=== PATIENT | female | born 1985 | race Caucasian/White ===

== ENCOUNTER 2021-06-01 17:01 | Emergency (ER) | payer BC, SELFPAY ==
[2021-06-01 17:29] VITALS: BP 126/82; PULSE 83; RESP 16; TEMP 36.2; O2SAT 99
--- NOTE | 2021-06-01 19:12 | ED.GENADULT ---
HPI - General Adult General Chief complaint: Skin/Abscess/Foreign Body Stated complaint: abcess under breast Source: patient Mode of arrival: ambulatory Limitations: no limitations History of Present Illness HPI narrative: Patient is a 36-year-old female who presents to the urgent care via POV for evaluation of a skin problem located on right breast that has been present for approximately 3 weeks. Additionally, she reports that area is tender, warm, erythematous, and draining. She states the drainage is scant and light yellow in color. Drainage is malodorous. No relief with Tylenol, ibuprofen, or warm compresses. Nothing improves symptoms. Touching the area and wearing a bra increases tenderness. History of cellulitis and abscesses. Today symptoms are similar to episodes of both Related Data Home Medications Medication Instructions Recorded Confirmed atorvastatin 06/01/21 dapagliflozin-metformin [Xigduo XR] PO 06/01/21 diphenoxylate-atropine tablet 06/01/21 escitalopram oxalate mg 06/01/21 06/01/21 exenatide microspheres [Bydureon mg SUBCUT 06/01/21 BCise] ferrous sulfate [FeroSul] mg 06/01/21 flash glucose sensor [FreeStyle 06/01/21 06/01/21 Terrell 14 Day Sensor] norgestrel-ethinyl estradiol tablet 06/01/21 [Low-Ogestrel (28)] ondansetron 06/01/21 pregabalin 06/01/21 propranolol 06/01/21 rifaximin [Xifaxan] mg 06/01/21 sitagliptin [Januvia] mg 06/01/21 tizanidine mg 06/01/21 Allergies Allergy/AdvReac Type Severity Reaction Status Date / Time Penicillins Allergy Rash Verified 06/01/21 19:12 Review of Systems Review of Systems: Denies injury. Pertinent negatives fever, chills, sweats, malaise, poor p.o. intake, change in appetite, headache, LOC, dizziness, streaking, numbness, tingling, loss of sensation, foreign body sensation, deformity, sob, chest pain, and heart palpitations/murmurs. [facility] Past Medical History Medical History (Updated 06/01/21 @ 19:17 by Judy Steven, [employer], BC) Cellulitis Diabetes mellitus type 2 in nonobese GERD (gastroesophageal reflux disease) Hyperlipidemia Iron deficiency anemia Irritable bowel syndrome Migraines Muscle spasm Neuropathy Skin abscess Social History Social History Smoking status: Former smoker Smoking end date: 09/03/08 Alcohol intake: never Exam Narrative: GENERAL: Well-appearing, well-nourished, and in no acute distress. HEAD: Normocephalic, atraumatic. No facial swelling appreciated. EYES: PERRLA and EOMI. No evidence of erythema, swelling, or drainage. ENT: Nares clear, no rhinorrhea or epistaxis.Mucous membranes moist and pink. Uvula is midline without erythema and swelling. No evidence of obstruction, petechial rash, cobblestoning, lesions, ulcers, erythema, swelling, exudates, peritonsillar abscess, tenting, or drooling. Breath odor and voice normal. NECK: Supple. No Lymphadenopathy or nuchal rigidity appreciated. CHEST: Bilateral lung mena are clear to auscultation. No respiratory distress. No evidence of cough or pleuritic cp upon examination. HEART: Regular rate and rhythm. No murmur, gallop, or rub heard. EXTREMITIES: Normal range of motion. No edema. SKIN: Warm, dry. Moderate cellulitis noted to right breast. No evidence of abscess, streaking, induration, abrasions/lacerations, petechiae, hematoma, contusion, drainage, or bleeding. NEURO: No focal deficits. Alert and oriented x3. SPECIAL OBSERVATIONS: Smiling. Laughing. No evidence of discomfort. C/O of of proportion to exam. Eating XXX. Running around. Tolerates food/fluids. Course Vital Signs Vital signs: Vital Signs Temperature 97.2 F L 06/01/21 17:29 Pulse Rate 83 06/01/21 17:29 Respiratory Rate 16 06/01/21 17:29 Blood Pressure 126/82 06/01/21 17:29 Pulse Oximetry 99 06/01/21 17:29 Temperature 97.2 F L 06/01/21 17:29 Pulse Rate 83 06/01/21 17:29 Respiratory Rate 16 06/01/21 17:29 Blood Pressure 126/82
== END 2021-06-01 19:15 | disposition home or self-care (01) ==
PROVIDERS: Emergency Provider Nurse Practitioner Family
DX: N61.0 Mastitis without abscess (principal); Z87.891 Personal history of nicotine dependence; K21.9 Gastro-esophageal reflux disease without esophagitis; E78.5 Hyperlipidemia, unspecified; E11.40 Type 2 diabetes mellitus with diabetic neuropathy, unspecified; D50.9 Iron deficiency anemia, unspecified
CPT/HCPCS: 99203; G0463

== ENCOUNTER → 2022-01-17 01:32 | Outpatient (CLI) | payer BC, SELFPAY ==
[2022-01-17 10:51] LABS: SARS-CoV-2 RNA PCR Positive
== END ==
PROVIDERS: PCP Family Medicine
DX: U07.1 COVID-19 (principal)
CPT/HCPCS: C9803; U0003; U0005

== ENCOUNTER 2022-02-12 09:49 | Emergency (ER) | payer BC, SELFPAY ==
[2022-02-12 10:00] VITALS: BP 183/110; PULSE 86; RESP 18; TEMP 37.1; O2SAT 99
--- NOTE | 2022-02-12 10:21 | ED.GENADULT ---
HPI - General Adult General Chief complaint: Skin/Abscess/Foreign Body Stated complaint: Rash,Cough Time Seen by Provider: 02/12/22 10:21 History of Present Illness HPI narrative: 36-year-old female patient presents to the [facility] with complaints of a cough and wheezing along with a rash. Patient states she was diagnosed with COVID about a month ago and states she was never given anything for treatment however she continues to have a cough with a little bit of shortness of breath and wheezing noted. Patient also coming in today because she recently returned from [place] and has broken out in a rash to bilateral upper extremities and bilateral lower extremities. Patient states the rash is very itchy. Denies any new lotions soaps or detergents. Patient states she did use some suntan lotion while she was in [place] but used it all over and only notices the rash on the extremities. Patient denies coming into contact with any citrus juice that she is aware of. Patient states she did get into the ocean but that the rash did not actually break out until about 2 or 3 days after going into the ocean. Patient denies any fevers, body aches or chills. Denies any nausea, vomiting or diarrhea. Related Data Home Medications Medication Instructions Recorded Confirmed atorvastatin 20 mg tablet 20 mg PO DAILY 06/01/21 02/12/22 dapagliflozin 5 mg-metformin ER 5 - 1,000 tablet PO DAILY 06/01/21 02/12/22 1,000 mg tablet,extended release 24hr (Xigduo XR) escitalopram oxalate 10 mg tablet 10 mg PO DAILY 06/01/21 02/12/22 ferrous sulfate 325 mg (65 mg 325 mg PO DAILY 06/01/21 02/12/22 iron) tablet (FeroSul) pregabalin 75 mg capsule 75 mg PO DAILY 06/01/21 02/12/22 propranolol 80 mg tablet 80 mg PO DAILY 06/01/21 02/12/22 sitagliptin 100 mg tablet (Januvia) 100 mg PO DAILY 06/01/21 02/12/22 omeprazole 20 mg capsule,delayed 20 mg PO DAILY 02/12/22 02/12/22 release Allergies Allergy/AdvReac Type Severity Reaction Status Date / Time Penicillins Allergy Severe SOB, Verified 02/12/22 09:52 HIVES, SWELLING Review of Systems Review of Systems: CONSTITUTIONAL: Denies fever, chills, or sweats. EYES: Denies visual changes, redness, or discharge. ENT: Denies rhinorrhea, congestion, sore throat, or otalgia. CARDIOVASCULAR: Denies chest pain, palpitations, or edema. RESPIRATORY: Denies cough or dyspnea. GASTROINTESTINAL: Denies abdominal pain, nausea, vomiting, or diarrhea. GENITOURINARY: Denies dysuria or hematuria. SKIN: Denies rash or itching. MUSCULOSKELETAL: Denies back pain, joint pain, or myalgia. NEUROLOGIC: Denies headache, numbness, or weakness. PSYCHIATRIC: Denies anxiety or depression. [facility] Past Medical History Medical History Cellulitis Diabetes mellitus type 2 in nonobese GERD (gastroesophageal reflux disease) Hyperlipidemia Iron deficiency anemia Irritable bowel syndrome Migraines Muscle spasm Neuropathy Skin abscess Social History Social History Smoking status: Former smoker Smoking end date: 09/03/08 Alcohol intake: never Comments At the time of my signature I agree with nursing past medical history, surgical, social, and family history. There is no relevant family history pertinent to the presenting complaint. Exam Narrative: GENERAL: Well-appearing, well-nourished, and in no acute distress. HEAD: Normocephalic, atraumatic. EYES: PERRLA and EOMI. ENT: Nares clear, no rhinorrhea or epistaxis. Mucous membranes moist. NECK: Supple. No lymphadenopathy CHEST: Patient has inspiratory and expiratory wheezing noted to bilateral upper lower lobes on auscultation No respiratory distress. Patient able talk in clear complete sentences. HEART: Regular rate and rhythm. No murmur heard. Normal peripheral pulses. ABDOMEN: Soft, nontender, nondistended, normal active bowel sounds. EXTREMITIES: Normal
[2022-02-12 10:25] VITALS: PULSE 86; RESP 16; O2SAT 99
[2022-02-12] MEDS: IPRATROPIUM BR 0.02% INH SOLN 0.5 MG/2.5 ML VIAL INHALATION (10:32)
[2022-02-12] MEDS: ALBUTEROL SULFATE NEB 2.5 MG/3 ML INH INHALATION (10:33)
[2022-02-12 10:45] VITALS: PULSE 97; RESP 18; O2SAT 99
== END 2022-02-12 11:22 | disposition home or self-care (01) ==
PROVIDERS: Emergency Provider Nurse Practitioner Family
DX: J20.8 Acute bronchitis due to other specified organisms (principal); U09.9 Post COVID-19 condition, unspecified; R21 Rash and other nonspecific skin eruption; K21.9 Gastro-esophageal reflux disease without esophagitis; E78.5 Hyperlipidemia, unspecified; E11.40 Type 2 diabetes mellitus with diabetic neuropathy, unspecified; D50.9 Iron deficiency anemia, unspecified
CPT/HCPCS: 94640; 99213; G0463

== ENCOUNTER 2022-06-03 11:03 | Emergency (ER) | payer BC, SELFPAY ==
--- NOTE | ~2022-06-03 | XR_ITS ---
EXAMINATION: XR foot RT min 3V DATE: 06/03/2022 11:34 INDICATION: Right foot injury and swelling. TECHNIQUE: 4 views of right foot were obtained. COMPARISON: None. FINDINGS: Bone alignment is normal. No fracture. Joint spaces are normal. There are enthesophytes at the posterior and plantar aspects of calcaneal tuberosity. IMPRESSION: 1. No fracture. Reviewed, dictated and finalized at location A. IMPRESSION: 1. No fracture.
[2022-06-03 11:25] VITALS: BP 140/96; PULSE 89; RESP 16; TEMP 36.3; O2SAT 100
[2022-06-03 11:26] VITALS: BP 140/96; PULSE 89; RESP 16; TEMP 36.3; O2SAT 100
--- NOTE | 2022-06-03 11:59 | ED.GENADULT ---
HPI - General Adult General Chief complaint: Extremity Injury, Lower Stated complaint: rt foot swollen Source: patient Mode of arrival: ambulatory Limitations: no limitations History of Present Illness HPI narrative: Patient presents for evaluation of right foot pain from an injury that occurred 2 days ago. She indicates she was on vacation sightseeing at the time of the injury. She was walking down a dark stairwell and missed a step. She caught her self using the handrail and experienced pain in her right foot. At rest she has a dull throbbing sensation but with weightbearing she has considerable increase in pain. She states with movement and weightbearing her pain is 6 out of 10 in severity. She is some chronic numbness and tingling related to diabetic neuropathy. Current symptoms are not worse than her baseline. She has been taking ibuprofen and Tylenol with some improvement in her symptoms or after. Related Data Home Medications Medication Instructions Recorded Confirmed atorvastatin 20 mg tablet 20 mg PO DAILY 06/01/21 06/03/22 dapagliflozin 5 mg-metformin ER 5 - 1,000 tablet PO DAILY 06/01/21 06/03/22 1,000 mg tablet,extended release 24hr (Xigduo XR) escitalopram oxalate 10 mg tablet 10 mg PO DAILY 06/01/21 06/03/22 ferrous sulfate 325 mg (65 mg 325 mg PO DAILY 06/01/21 06/03/22 iron) tablet (FeroSul) pregabalin 75 mg capsule 75 mg PO DAILY 06/01/21 06/03/22 propranolol 80 mg tablet 80 mg PO DAILY 06/01/21 06/03/22 sitagliptin 100 mg tablet (Januvia) 100 mg PO DAILY 06/01/21 06/03/22 omeprazole 20 mg capsule,delayed 20 mg PO DAILY 02/12/22 06/03/22 release Allergies Allergy/AdvReac Type Severity Reaction Status Date / Time Penicillins Allergy Severe SOB, Verified 06/03/22 11:21 HIVES, SWELLING Review of Systems Review of Systems: CONSTITUTIONAL: Denies fever, chills, or sweats. EYES: Denies visual changes, redness, or discharge. ENT: Denies rhinorrhea, congestion, sore throat, or otalgia. CARDIOVASCULAR: Denies chest pain, palpitations, or edema. RESPIRATORY: Denies cough or dyspnea. GASTROINTESTINAL: Denies abdominal pain, nausea, vomiting, or diarrhea. GENITOURINARY: Denies dysuria or hematuria. SKIN: Denies rash or itching. MUSCULOSKELETAL: Reports right foot pain. Denies back pain NEUROLOGIC: Denies headache, numbness, dizziness, or weakness. PSYCHIATRIC: Denies anxiety or depression. 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 HEAD: Normocephalic, atraumatic. EYES: PERRLA and EOMI. ENT: Nares clear, no rhinorrhea or epistaxis. Mucous membranes moist. Oropharynx without tonsillar hypertrophy exudate or other lesions. Bilateral TMs pearly richards nonbulging NECK: Supple. No adenopathy or masses. No carotid bruits or JVD CHEST: Clear to auscultation. No respiratory distress. No wheezes rales or rhonchi HEART: Regular rate and rhythm. No murmur
== END 2022-06-03 12:03 | disposition home or self-care (01) ==
PROVIDERS: Emergency Provider Nurse Practitioner; PCP Family Medicine
DX: S96.911A Strain of unspecified muscle and tendon at ankle and foot level, right foot, initial encounter (principal); W10.9XXA Fall (on) (from) unspecified stairs and steps, initial encounter; E11.9 Type 2 diabetes mellitus without complications; K21.9 Gastro-esophageal reflux disease without esophagitis; E78.5 Hyperlipidemia, unspecified; D50.9 Iron deficiency anemia, unspecified; Z87.891 Personal history of nicotine dependence
CPT/HCPCS: 73630; 99213; G0463

== ENCOUNTER 2022-06-09 13:46 | Emergency (ER) | payer BC, SELFPAY ==
--- NOTE | ~2022-06-09 | XR_ITS ---
EXAMINATION: XR chest 2V 06/09/2022 14:22 INDICATION: Productive cough PROCEDURE: 2 view chest COMPARISON: 05/25/2021 FINDINGS: The lungs are clear. The cardiomediastinal silhouette is within normal limits. There are no pleural effusions. There is no pneumothorax suspected. There is dextroscoliosis. IMPRESSION: 1: NO ACUTE CARDIOPULMONARY DISEASE. Reviewed, dictated and finalized at location A.
[2022-06-09 13:56] VITALS: BP 156/104; PULSE 82; RESP 16; TEMP 37.1; O2SAT 98
--- NOTE | 2022-06-09 14:00 | ED.URI ---
HPI - URI/Sore Throat General Chief Complaint: Upper Respiratory Infection Stated Complaint: Fever, Cough Time Seen by Provider: 06/09/22 14:00 Source: patient, RN notes reviewed and old records reviewed Mode of arrival: ambulatory Limitations: no limitations History of Present Illness HPI Narrative: 37-year-old female presents to the [facility] with complaints of fever and cough. Patient reports that on Sunday she started with a sore throat, sinus issues and has moved into her chest. Patient reports of productive cough that has gradually gotten worse over the last few days. Reports low-grade fevers. Related Data Home Medications Medication Instructions Recorded Confirmed atorvastatin 20 mg tablet 20 mg PO DAILY 06/01/21 06/03/22 dapagliflozin 5 mg-metformin ER 5 - 1,000 tablet PO DAILY 06/01/21 06/03/22 1,000 mg tablet,extended release 24hr (Xigduo XR) escitalopram oxalate 10 mg tablet 10 mg PO DAILY 06/01/21 06/03/22 ferrous sulfate 325 mg (65 mg 325 mg PO DAILY 06/01/21 06/03/22 iron) tablet (FeroSul) pregabalin 75 mg capsule 75 mg PO DAILY 06/01/21 06/03/22 propranolol 80 mg tablet 80 mg PO DAILY 06/01/21 06/03/22 sitagliptin 100 mg tablet (Januvia) 100 mg PO DAILY 06/01/21 06/03/22 omeprazole 20 mg capsule,delayed 20 mg PO DAILY 02/12/22 06/03/22 release Allergies Allergy/AdvReac Type Severity Reaction Status Date / Time Penicillins Allergy Severe SOB, Verified 06/03/22 11:21 HIVES, SWELLING Review of Systems Review of Systems: All systems reviewed & are unremarkable except as noted in HPI and below Constitutional: Constitutional: Reports no additional constitutional complaints, Denies chills and Denies fever(s) Eyes: Eyes: Reports no additional eye complaints ENT: Reports as per HPI and Reports sore throat Cardiovascular: Cardiovascular: Reports no additional cardiovascular complaints Respiratory: Respiratory: Reports as per HPI, Reports chest congestion, Reports cough and Reports wheezing Gastrointestinal: Gastrointestinal: Reports no additional gastrointestinal complaints Musculoskeletal: Musculoskeletal: Reports no additional musculoskeletal complaints Integumentary/Breasts: Skin/Breast: Reports system reviewed and no additional complaints, except as docu Neurologic: Reports system reviewed and no additional complaints, except as documented Psychiatric: Psychiatric: Reports no additional psychiatric complaints Allergic/Immunologic: Allergic/Immunologic: Reports no additional allergic/immunologic complaints PMFSH Past Medical History Medical History (Updated 06/09/22 @ 14:37 by Camryn Salazar APRN) Cellulitis Diabetes mellitus type 2 in nonobese GERD (gastroesophageal reflux disease) Hyperlipidemia Iron deficiency anemia Irritable bowel syndrome Migraines Muscle spasm Neuropathy Right foot strain Skin abscess Surgical History Surgical History No pertinent past surgical history Family History Family History Mother Family history non-contributory Social History Social History Smoking status: Former smoker Smoking end date: 09/03/08 Alcohol intake: current Alcohol use details: Social 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 There is no relevant family history pertinent to the patient complaint. Exam Const: General: healthy appearing, no acute distress, alert and well nourished Nutritional Appearance: well nourished and obese Orientation/consciousness: patient oriented x3 Limitations
== END 2022-06-09 14:57 | disposition home or self-care (01) ==
PROVIDERS: Emergency Provider Nurse Practitioner; PCP Family Medicine
DX: J40 Bronchitis, not specified as acute or chronic (principal); Z87.891 Personal history of nicotine dependence; E11.9 Type 2 diabetes mellitus without complications; K21.9 Gastro-esophageal reflux disease without esophagitis; E78.5 Hyperlipidemia, unspecified; D50.9 Iron deficiency anemia, unspecified
CPT/HCPCS: 71046; 87804; 99213; G0463

== ENCOUNTER 2023-01-23 08:39 | Emergency (ER) | payer BC, SELFPAY ==
--- NOTE | ~2023-01-23 | XR_ITS ---
EXAMINATION: XR chest 2V DATE: 01/23/2023 09:22 INDICATION: Productive cough. TECHNIQUE: Frontal and lateral views of the chest were obtained. COMPARISON: Chest 2 views 06/09/2022 FINDINGS: There is no pneumonia, pleural effusion, or pneumothorax. The heart size is normal. IMPRESSION: 1. No acute cardiopulmonary disease. Reviewed, dictated and finalized at location A.
[2023-01-23 08:49] VITALS: BP 117/73; PULSE 70; RESP 16; TEMP 36.4; O2SAT 99
[2023-01-23 08:50] VITALS: BP 117/73; PULSE 70; RESP 16; TEMP 36.4; O2SAT 99
--- NOTE | 2023-01-23 09:18 | ED.GENADULT ---
HPI - General Adult General Chief complaint: Upper Respiratory Infection Stated complaint: Cough/SOB Source: patient Mode of arrival: ambulatory Limitations: no limitations History of Present Illness HPI narrative: Patient presents for evaluation of sick symptoms for the last 7 days. She states she initially had a nonproductive cough, which has become productive since that time. She indicates sputum is cano/green in appearance. She reports some shortness of breath, chest tightness, pleuritic chest pain. She had a fever this past weekend no fever since that time. She states her throat feels scratchy . She did vomit as a result of a severe coughing episode. She denies any nausea otherwise. She has been taking tylenol, ibuprofen and mucinex for her symptoms. No recent sick contacts her knowledge. She does not smoke. She took a few home COVID tests all of which were negative. Related Data Home Medications Medication Instructions Recorded Confirmed atorvastatin 20 mg tablet 20 mg PO DAILY 06/01/21 06/03/22 dapagliflozin 5 mg-metformin ER 5 - 1,000 tablet PO DAILY 06/01/21 06/03/22 1,000 mg tablet,extended release 24hr (Xigduo XR) escitalopram oxalate 10 mg tablet 20 mg PO DAILY 06/01/21 06/03/22 ferrous sulfate 325 mg (65 mg 325 mg PO DAILY 06/01/21 06/03/22 iron) tablet (FeroSul) pregabalin 75 mg capsule 75 mg PO BID 06/01/21 06/03/22 propranolol 80 mg tablet 80 mg PO DAILY 06/01/21 06/03/22 sitagliptin phosphate 100 mg 100 mg PO DAILY 06/01/21 06/03/22 tablet (Januvia) omeprazole 20 mg capsule,delayed 20 mg PO DAILY 02/12/22 06/03/22 release exenatide microspheres 2 mg/0.85 mg subcut 01/23/23 01/23/23 mL subcutaneous auto-injector (Bydureon BCise) lisinopril 10 mg tablet 10 mg DAILY 01/23/23 01/23/23 lumateperone 10.5 mg capsule 10.5 mg PO DAILY 01/23/23 01/23/23 (Caplyta) norgestrel 0.3 mg-ethinyl tablet 01/23/23 01/23/23 estradiol 30 mcg tablet (Cher (28)) Allergies Allergy/AdvReac Type Severity Reaction Status Date / Time Penicillins Allergy Severe SOB, Verified 01/23/23 08:48 HIVES, SWELLING Review of Systems Review of Systems: CONSTITUTIONAL: Reports recent fever, now resolved. Denies chills, or sweats. EYES: Denies visual changes, redness, or discharge. ENT: Reports scratchy throat. Denies rhinorrhea, congestion, sore throat, or otalgia. CARDIOVASCULAR: Denies chest pain, palpitations, or edema. RESPIRATORY: Reports cough, shortness of breath, chest tightness GASTROINTESTINAL: Reports one episode of vomiting. Denies abdominal pain, vomiting, or diarrhea. GENITOURINARY: Denies dysuria or hematuria. SKIN: Denies rash or itching. MUSCULOSKELETAL: Denies back pain, joint pain, or myalgia. NEUROLOGIC: Denies headache, numbness, dizziness, or weakness. PSYCHIATRIC: Denies anxiety or depression. 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
== END 2023-01-23 09:44 | disposition home or self-care (01) ==
PROVIDERS: Emergency Provider Nurse Practitioner; PCP Family Medicine
DX: J06.9 Acute upper respiratory infection, unspecified (principal); Z20.822 Contact with and (suspected) exposure to COVID-19; K21.9 Gastro-esophageal reflux disease without esophagitis; E78.5 Hyperlipidemia, unspecified; E11.40 Type 2 diabetes mellitus with diabetic neuropathy, unspecified; D50.9 Iron deficiency anemia, unspecified; Z87.891 Personal history of nicotine dependence
CPT/HCPCS: 71046; 87081; 87426; 87804; 87880; 99213; C9803; G0463

== ENCOUNTER 2024-10-09 13:13 | Outpatient (CLI) | payer BC, SELFPAY ==
--- NOTE | ~2024-10-09 | MM_ITS ---
EXAMINATION: MM screening farheen BI w naila HISTORY: Screening TECHNIQUE: Craniocaudal and mediolateral oblique 3-D tomosynthesis images were obtained and synthetic 2-D images were generated. CAD analysis was submitted and interpreted. COMPARISON: No prior mammogram is available for comparison at this institution. BREAST PARENCHYMAL COMPOSITION: Not dense: There are scattered areas of fibroglandular density. FINDINGS: There is no mammographic evidence for malignancy in the right breast. There are small coco s medially and laterally in the left breast on CC view which are of scattered on MLO view. There is n o suspicious calcifications or architectural distortion. IMPRESSION: 1. Small left breast masses. 2. Additional mammographic views and possible breast ultrasound are recommended. BI-RADS Category 0: Incomplete: Needs additional imaging evaluation. Reviewed, dictated and finalized at location B. EN THERAPIST IMPRESSION: 1. Small left breast masses. 2. Additional mammographic views and possible breast ultrasound are recommended . BI-RADS Category 0: Incomplete: Needs additional imaging evaluation.
== END 2024-10-09 13:14 | disposition home or self-care (01) ==
PROVIDERS: PCP Family Medicine; Visit Provider Obstetrics & Gynecology
DX: Z12.31 Encounter for screening mammogram for malignant neoplasm of breast (principal); N63.20 Unspecified lump in the left breast, unspecified quadrant
CPT/HCPCS: 77063; 77067

== ENCOUNTER 2024-10-29 09:47 | Outpatient (CLI) | payer BC, SELFPAY ==
--- NOTE | ~2024-10-29 | MMUS_ITS ---
EXAMINATION: MM diagnostic farheen LT w naila, US breast LT limited HISTORY: Left breast asymmetry TECHNIQUE: Additional 3-D tomosynthesis images of the left breast were performed and synthetic 2-D im ages were generated. CAD analysis was submitted and interpreted. High resolution limited left breast ultrasound was performed. COMPARISON: 10/09/2024 BREAST PARENCHYMAL COMPOSITION:Not Dense. There are scattered areas of fibroglandular density. FINDINGS: MAMMOGRAPHIC FINDINGS: Spot compression views demonstrate possible persistent density at the inner, central left breast, and additional possible persistent mass in the immediate left subareolar region. ULTRASOUND: At the 12:00 position left breast, near the nipple, there is an 8 x 4 x 7 mm circumscribed parallel m ass with some internal heterogeneity, but no posterior shadowing. No other sonographic abnormality se en. IMPRESSION: No overtly suspicious findings. Probable benign 8 mm mass seen sonographically, as above. 6 month fo llow-up left mammogram and ultrasound are recommended to reassess. BI-RADS category 3, probably benign findings. Reviewed, dictated and finalized at location . F RADIOGRAPHER IMPRESSION: No overtly suspicious findings. Probable benign 8 mm mass seen sonographically , as above. 6 month follow-up left mammogram and ultrasound are recommended to reassess. BI-RADS category 3, probably benign findings.
== END 2024-10-29 09:48 | disposition home or self-care (01) ==
PROVIDERS: PCP Family Medicine; Visit Provider Obstetrics & Gynecology
DX: R92.8 Other abnormal and inconclusive findings on diagnostic imaging of breast (principal)
CPT/HCPCS: 76642; 77061; 77065; G0279

== ENCOUNTER 2025-04-02 15:30 | Outpatient (CLI) | payer BC, SELFPAY ==
--- OUTSIDE RECORDS SUMMARY | 2025-04-02 15:33 | XMS_ITS | Encounter Summary ---
Author Organization [facility] Care Team Providers Care Critical Care Physician Name Role Phone Fransisca Loza MD Primary Care Provider [phone] Fransisca Loza MD Primary Care Provider [phone] Fransisca Loza MD Primary Care Provider [phone] Encounter Details Date Type Department Care Team (Latest Contact Info) Description 01/06/2016 Orders Only [facility] ProviderChio MD [address] [place] [id number] Social History Tobacco Use Types Packs/Day Years Used Date Smoking Tobacco: Never Assessed Comments Unknown Sex and Gender Information Value Date Recorded Sex Assigned at Not on file 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 Historical Provider Final Res ult documented in this encounter Visit Diagnoses Not on filedocumented in this encounter Additional Health Concerns Infection Onset Date Last Indicated Resolved Time COVID: Suspected 12/15/2019 12/15/2019 12/19/2019 7:54 AM CDT Respiratory Infection (SHIVA), contact + droplet Comment:Automatically added due to negative COVID-19 result. 12/19/2019 12/19/2019 01/02/2020 3:0 5 AM CDT COVID: Suspected 04/16/2020 04/16/2020 04/30/2020 3:06 AM CDT COVID: Suspected 08/02/2020 08/03/2020 08/04/2020 8:54 PM PIPE RECOVERY SPECIALIST Respiratory Infection (SHIVA), contact + droplet Comment:Automatically added due to negative COVID-19 result. 08/04/2020 08/04/2020 08/18/2020 3:0 7 AM PIPE RECOVERY SPECIALIST COVID: Suspected 08/05/2020 08/07/2020 08/08/2020 3:56 AM PIPE RECOVERY SPECIALIST COVID: Suspected 10/01/2020 10/01/2020 10/02/2020 3:45 AM PIPE RECOVERY SPECIALIST Respiratory Infection (SHIVA), contact + droplet Comment:Automatically added due to negative COVID-19 result. 10/02/2020 10/02/2020 10/16/2020 3:0 5 AM PIPE RECOVERY SPECIALIST COVID: Suspected 10/06/2020 10/06/2020 10/07/2020 5:07 AM PIPE RECOVERY SPECIALIST COVID: Suspected 11/03/2021 11/03/2021 11/04/2021 3:06 AM PIPE RECOVERY SPECIALIST documented as of this encounter Care Teams Critical Care Physician Relationship Specialty Start Date End Date Fransisca Loza MD PCP - General 11/14/18 10/03/21 Fransisca Loza MD PCP - General 11/12/18 11/13/18 Fransisca Loza MD PCP - General Family Medicine 10/04/21 documented as of this encounter
--- OUTSIDE RECORDS SUMMARY | 2025-04-02 15:33 | XMS_ITS | Clinical Summary ---
Author Organization [facility] Address [address] [place] [address] Care Team Providers Care Recruiting Operations Consultant Name Role Phone Francisco Javier Dorado MD Primary Care Provider [phone] Source Comments [facility],non-owned Affiliates and Associated Physician Practices is amultiple site organization consisting of ambulatory clinics and hospital sitesin [place], [place], [place] and [place]. This disclosure is being madepursuant to the Care Everywhere program and may not contain all information available regarding this patient. Last updated 18.[facility] Allergies Active Allergy Reactions Criticality Noted Date Comments Penicillins Urticaria Medium 01/29/2014 Medications * Be aware that medications may not be up to date on this document. Alwaysverify current medications with the patient. eletriptan (RELPAX) 40 MG tablet Take 40 mg by mouth once as needed. Active dicyclomine (BENTYL) 20 MG tablet Take 20 mg by mouth 4 times daily as needed. Active Loperamide HCl (IMODIUM A-D PO) Take by mouth. Active Multiple Vitamins-Mineral s (MULTIVITAMIN & MINERAL PO) Take by mouth. Active propranolol (INDERAL) 80 MG tablet Take 1 Tab by mouth 2 times daily. Active Metoclopramide HCl (REGLAN PO) Acti ve escitalopram (LEXAPRO) 10 MG tablet Take 10 mg by mouth once daily Active dapagliflozin-me tFORMIN ER 24hr (XIGDUO XR) 5-1000 MG tablet Take 1 tablet by mouth daily with food Do not crush or chew. Active Norethin-Eth Estrad-Fe Biphas (LO LOESTRIN FE PO) Active Active Problems Problem Noted Date Diagnosed Date Headache, chronic migraine without aura, intract able 02/24/2014 Family History Medical History Relation Name Comments Migraine Mother Relation Name Status Comments Mother Social History Tobacco Use Types Packs/Day Years Used Date Smoking Tobacco: Former Cigarettes Q uit: 2007 Smokeless Tobacco: Never Alcohol Use Standard Drinks/Week Comments Yes 0 (1 standard drink = 0.6 oz pur e alcohol) OCCASIONALLY Comments No Sex and Gender Information Value Date Recorded Sex Assigned at Not on file Legal Sex Female 11:59 AM CDT Gender Identity Not on file Sexual Orientation Not on file 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 Not on file Not on file Last Filed Vital Signs Vital Sign Reading Time Taken Comments Blood Pressure 122/68 07/02/2019 10:01 AM CDT Pulse 77 07/02/2019 10:01 AM CDT Temperature 36.9 C (98.4 F) 07/02/2019 10:01 AM CDT Respiratory Rate 16 07/02/2019 10:01 AM CDT Oxygen Saturation 98% 07/02/2019 10:01 AM CDT Inhaled Oxygen Concentration - - Weight 104.3 kg (230 lb) 07/02/2019 10:01 AM CDT Height 175.3 cm (5' 9) 07/02/2019 10:01 AM CDT Body Mass Index 33.97 07/02/2019 10:01 AM CDT Plan of Treatment Health Maintenance Due Date Last Done Comments LIPID TESTING 1984 MAMMOGRAM 1984 HIV SCREENING 1999 HEPATITIS C SCREENING 03/06/2002 DTAP/TDAP/TD VACCINES (1 - Tdap) 2003 HEPATITIS B VACCINE (1 of 3 - 19+ 3-dose series) 2003 HPV VACCINE (1 - 3-dose SCDM series) 2011 COVID-19 VACCINE (2023-2 5 season) 2024 DEPRESSION SCREENING 09/03/2024 INFLUENZA VACCINE (#1) 2025 , 06/25/2018 ZOSTER VACCINE (1 of 2) 2034 HIB VACCINE Aged Out No longer eligi ble based on patient's age to complete this topic MENINGOCOCCAL (Group B) VACCINE SHARED DECISION-MAKING Aged Out No longer eligible based on patient's age to complete this topic MENINGOCOCCAL GROUPS A/C/Y/W VACCINE Aged Out No longer eligible b ased on patient's age to complete this topic PNEUMOCOCCAL VACCINE Aged Out No long er eligible based on patient's age to complete this topic Insurance [facility] Care Teams Recruiting Operations Consultant Relationship Specialty Start Date End Date Francisco Javier Dorado MD [address] [place] [address] PCP - General Family Medicine 01/29/14
--- OUTSIDE RECORDS SUMMARY | 2025-04-02 15:33 | XMS_ITS | Encounter Summary ---
Author Organization [facility] Healthcare Address [address] [place] [address] Care Team Providers Care Floor Cleaner Name Role Phone Fransisca Loza MD Primary Care Provider [phone] Encounter Details Date Type Department Care Team (Late st Contact Info) Description 10/09/2024 Orders Only [facility] [place] [facility] [address] [place] [address] Scanning, Provider Social History Tobacco Use Types Packs/Day Years Used Date Smoking Tobacco: Former Cigarettes 0.5 5 Smokeless Tobacco: Never Comments:QUIT 2009 Alcohol Use Standard Drinks/Week Comments Yes 0 (1 standard drink = 0.6 oz pur e alcohol) RARELY AUDIT-C Answer Date Recorded Q1: How often do you have a drink containing alc ohol? Monthly or less 04/04/2023 Q2: How many drinks containi ng alcohol do you have on a typical day when you are drinking? 1 or 2 04/04/2023 Q3: How often do you have si x or more drinks on one occasion? 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 Gender Identity Female 05/20/2020 8:57 AM CDT Sexual Orientation Straight 05/20/2020 8: 57 AM CDT documented as of this encounter Plan of Treatment Not on file documented as of this encounter Procedures Procedure Name Priority Date/Time Associated Diagnosis Comments SCAN - RADIOLOGY/IMAGING 10/09/2024 documented in this encounter Results * SCAN - RADIOLOGY/IMAGING (10/09/2024) Anatomical Region Laterality Modality Other us Provider Scanning Final Result documented in this encounter Visit Diagnoses Not on filedocumented in this encounter Care Teams Floor Cleaner Relationship Specialty Start Date End Date Fransisca Loza MD PCP - General Family Medicine 10/04/21 documented as of this encounter
--- OUTSIDE RECORDS SUMMARY | 2025-04-02 15:33 | XMS_ITS | Encounter Summary ---
Author Organization [facility] Facility Care Team Providers Care Visual Educator Name Role Phone Fransisca Loza MD Primary Care Provider [phone] Fransisca Loza MD Primary Care Provider [phone] Fransisca Loza MD Primary Care Provider [phone] Encounter Details Date Type Department Care Team (Latest Contact Info) Description 01/11/2016 Orders Only [facility] ProviderChio MD [address] [place] [address] Social History Tobacco Use Types Packs/Day Years Used Date Smoking Tobacco: Never Assessed Comments Unknown Sex and Gender Information Value Date Recorded Sex Assigned at Not on file 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 Gender Identity Female 05/20/2020 8:57 AM CDT Sexual Orientation Straight 05/20/2020 8: 57 AM CDT documented as of this encounter Plan of Treatment Not on file documented as of this encounter Procedures Procedure Name Priority Date/Time Associated Diagnosis Comments SCAN - LABS 01/11/2016 12:00 AM CDT documented in this encounter Results * SCAN - LABS (01/11/2016 12:00 AM CDT) Narrative 01/11/2016 12:00 AM CDT Ordered by an unspecified [...] COVID: Suspected 08/02/2020 08/03/2020 08/04/2020 8:54 PM HONING MACHINE OPERATOR Respiratory Infection (SHIVA), contact + droplet Comment:Automatically added due to negative COVID-19 result. 08/04/2020 08/04/2020 08/18/2020 3:0 7 AM HONING MACHINE OPERATOR COVID: Suspected 08/05/2020 08/07/2020 08/08/2020 3:56 AM HONING MACHINE OPERATOR COVID: Suspected 10/01/2020 10/01/2020 10/02/2020 3:45 AM HONING MACHINE OPERATOR Respiratory Infection (SHIVA), contact + droplet Comment:Automatically added due to negative COVID-19 result. 10/02/2020 10/02/2020 10/16/2020 3:0 5 AM HONING MACHINE OPERATOR COVID: Suspected 10/06/2020 10/06/2020 10/07/2020 5:07 AM HONING MACHINE OPERATOR COVID: Suspected 11/03/2021 11/03/2021 11/04/2021 3:06 AM HONING MACHINE OPERATOR documented as of this encounter Care Teams Visual Educator Relationship Specialty Start Date End Date Fransisca Loza MD PCP - General 11/14/18 10/03/21 Fransisca Loaz MD PCP - General 11/12/18 11/13/18 Fransisca Loza MD PCP - General Family Medicine 10/04/21 documented as of this encounter
--- OUTSIDE RECORDS SUMMARY | 2025-04-02 15:33 | XMS_ITS | Clinical Summary ---
Author Organization [facility] Address [address] [place] [phone] Care Team Providers Care Germination Testing Manager Name Role Phone Fransisca Loza MD Primary Care Provider [phone] Allergies Active Allergy Reactions Criticality Noted Date Comments Penicillamine Hives Medium 12/23/2018 Medications eletriptan (RELPAX) 40 mg tablet Take 1 tablet (40 mg total) by mouth once as needed for headaches 11/13/19 19 Active Cryselle, 28, 0.3-30 mg-mcg per tablet Take 1 tablet by mouth daily 06/24/20 22 Active zolpidem (AMBIEN) 5 mg tabletIndications :Insomnia, unspecified type Take 1 tablet (5 mg total) by mouth nightly as needed for sleep 30 tablet 5 08/31/20 22 Active diphenoxylate-atr opine (LOMOTIL) 2.5-0.025 mg per tabletIndications :Irritable bowel syndrome with diarrhea Take 1 tablet by mouth 4 (four) times a day as needed for diarrhea 90 tablet 08/31/20 22 Active hydrOXYzine (ATARAX) 25 mg tablet TAKE 1 TABLET(25 MG) BY MOUTH TWICE DAILY NEEDED FOR ITCHING 60 tablet 11/20/19 23 Active dicyclomine (BENTYL) 20 mg tablet TAKE 1 TABLET THREE TIMES A DAY NEEDED FOR DIARRHEA 270 tablet 3 02/07/20 23 Active tiZANidine (ZANAFLEX) 4 mg tablet TAKE 1 TABLET EVERY 8 HOURS NEEDED FOR MUSCLE SPASMS 270 tablet 3 09/12/19 24 Active atorvastatin (LIPITOR) 20 mg tabletIndications :Hypertriglycerid emia Take 1 tablet (20 mg total) by mouth daily 90 tablet 3 10/01/19 25 Active blood-glucose meter,continuous ([employer]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5 mg/0.5 mL pen injector injectionIndicati ons:Controlled type 2 diabetes mellitus without complication, without long-term current use of insulin (HCC) Inject 0.5 mL (7.5 mg total) under the skin every 7 days 2 mL 3 01/02/20 25 Active budesonide-glycop yr-formoterol (Breztri Aerosphere) 160-9-4.8 mcg/actuation inhalerIndication s:Wheezing Inhale 2 puffs 2 (two) times a day 10.7 g 01/02/20 25 Active dextromethorphan- bupropion (Auvelity) 45-105 mg tablet, IR & ER, biphasicIndicatio ns:Moderate episode of recurrent major depressive disorder (HCC) TAKE 1 TABLET BY MOUTH TWICE DAILY 60 tablet 2 01/20/20 25 Active montelukast (SINGULAIR) 10 mg tabletIndications :Wheezing,Chronic rhinitis TAKE 1 TABLET(10 MG) BY MOUTH EVERY NIGHT 90 tablet 02/10/20 25 Active pregabalin (LYRICA) 75 mg capsuleIndication s:Burning sensation of foot TAKE 1 CAPSULE(75 MG) BY MOUTH TWICE DAILY 180 capsule 03/26/20 25 Active propranoloL (INDERAL) 80 mg tablet TAKE 1 TABLET(80 MG) BY MOUTH TWICE DAILY 180 tablet 03/26/20 25 Active ALPRAZolam (XANAX) 0.25 mg tablet TAKE 1 TABLET(0.25 MG) BY MOUTH EVERY NIGHT NEEDED FOR ANXIETY 30 tablet 03/26/20 25 Active ALPRAZolam (XANAX) 0.25 mg tablet TAKE 1 TABLET(0.25 MG) BY MOUTH EVERY NIGHT NEEDED FOR ANXIETY 30 tablet 1 11/27/19 25 025 Discontinued propranoloL (INDERAL) 80 mg tablet Take 1 tablet (80 mg total) by mouth 2 (two) times a day 180 tablet 12/19/19 025 Discontinued pregabalin (LYRICA) 75 mg capsuleIndication s:Burning sensation of foot TAKE 1 CAPSULE(75 MG) BY MOUTH TWICE DAILY 180 capsule 01/06/20 025 Discontinued Active Problems Problem Noted Date Diagnosed Date Wheezing 01/01/2025 Assessment & Plan (01/11/2025 11:31 PM CDT): New Order chintan leon Chronic rhinitis 01/01/2025 Abscess of left groin 10/22/2024 Assessment & Plan (10/31/2024 3:47 PM PHARMACEUTICAL SCIENTIST): New Order bactrim Acute diarrhea 10/22/2024 Assessment & Plan (10/31/2024 3:47 PM PHARMACEUTICAL SCIENTIST): New Order CBC Likely viral Type 2 diabetes mellitus with hyperlipidemia 05/2025 Assessment & Plan (10/31/2024 3:46 PM PHARMACEUTICAL SCIENTIST): Chronic DM stable Cont mounjara Goal Hgba1c<6.5 HLP stable Cont lipitor, zetia Goal: TC<200, LDL<100, TG<150 Assessment & Plan (10/12/2024 7:04 PM PHARMACEUTICAL SCIENTIST): Chronic Stable Cont metformin Goal:hgba1c<6.5 Cont lipitor, zetia Goal: TC<200, LDL<100, TG<150 Onychomycosis of right great toe 04/04/2023 Assessment & Plan (04/10/2023 9:45 PM CDT): New Order lamisil Order LFTs to check monthly for 3 months Hypertension, essential 10/17/2022 Assessment & Plan (10/12/2024 7:02 PM PHARMACEUTICAL SCIENTIST): Chronic Stable Cont toprol, toprol Goal: SBP<140, DBP<90 Assessment & Plan (06/06/2024 9:16 AM CDT): Chronic Stable Cont propranolol Goal: SBP<140, DBP<90 Assessment & Plan (09/04/2023 6:22 AM PHARMACEUTICAL SCIENTIST): Chronic Stable Cont lisinopril Goal: SBP<140, DBP<90 Assessment & Plan (04/10/2023 9:45 PM CDT): Chronic Stable Cont lisinopril, propranolol Goal: SBP<140, DBP<90 Assessment & Plan (12/20/2022 11:47 AM CDT): Improved since last time Cont lisinopril Goal: SBP<140, DBP<90 Assessment & Plan (10/18/2022 6:19 AM PHARMACEUTICAL SCIENTIST): New Uncontrolled Start lisinopril Goal: SBP<140, DBP<90 Panic attacks 10/17/2022 Assessment & Plan (01/18/2023 2:48 PM CDT): Finally improving Cont caplyta Failed: wellbutrin, lexapro, vraylar Refer to psych Assessment & Plan (12/20/2022 12:21 PM CDT): Worsening Uncontrolled Failed: wellbutrin, lexapro, vraylar Start caplypta Refer to psych Assessment & Plan (10/18/2022 6:20 AM PHARMACEUTICAL SCIENTIST): New Start xanax prn Mixed hyperlipidemia 08/31/2022 Assessment & Plan (06/06/2024 9:16 AM CDT): Chronic Stable Cont lipitor, zetia Goal: TC<200, LDL<100, TG<150 Assessment & Plan (09/04/2023 6:23 AM PHARMACEUTICAL SCIENTIST): Chronic Uncontrolled Add zetia Cont lpitor Goal: TC<200, LDL<100, TG<150 Assessment & Plan (04/10/2023 9:46 PM CDT): Chronic Stable Cont lipitor Goal: TC<200, LDL<100, TG<150 Assessment & Plan (12/20/2022 11:46 AM CDT): Chronic TG still increased Cont lipitor Goal: TC<200, LDL<100, TG<150 Assessment & Plan (09/14/2022 6:10 AM PHARMACEUTICAL SCIENTIST): Chronic Stable Cont lipitor Goal: TC<200, LDL<100, TG<150 Nasal congestion 11/03/2021 Assessment & Plan (11/21/2021 1:37 AM CDT): New Order zpack Order flu/covid test Controlled type 2 diabetes m ellitus without complication, without long-term current use of insulin 08/11/2021 Assessment & Plan (06/06/2024 9:15 AM CDT): Chronic Stable Stopped xigduo because glucose dropped too low with theweight loss Cont mounjara Goal: hgba1c<6.5 Assessment & Plan (09/04/2023 6:23 AM PHARMACEUTICAL SCIENTIST): Chronic Stable Cont bydureon, januvia, xigduo xr Goal:hgba1c<6.5 Assessment & Plan (12/20/2022 11:47 AM CDT): Chronic Stable Cont bydureon, januvia, xigduo Goal; Hgba1c<6.5 Assessment & Plan (12/09/2021 11:39 AM CDT): Stable Cont xigduo, januvia, bydureon Goal: hgba1c<6.5 Assessment & Plan (11/21/2021 1:37 AM CDT): Stable Cont xigduo, januvia Goal: hgba1c<6.5 Assessment & Plan (08/11/2021 5:22 AM PHARMACEUTICAL SCIENTIST): Stable Cont xigduo, januvia Goal: hgba1c<6.5 Acquired hypothyroidism 08/11/2021 Assessment & Plan (10/12/2024 7:01 PM PHARMACEUTICAL SCIENTIST): Chronic Stable Cont levothyroxine Assessment & Plan (06/06/2024 9:15 AM CDT): Chronic Stable Cont synthroid Assessment & Plan (09/04/2023 6:22 AM PHARMACEUTICAL SCIENTIST): Chronic stable Assessment & Plan (09/14/2022 6:10 AM PHARMACEUTICAL SCIENTIST): Stable Cont levothyroxine Assessment & Plan (12/09/2021 11:39 AM CDT): Stable Cont levothyroxine Assessment & Plan (08/11/2021 5:25 AM PHARMACEUTICAL SCIENTIST): Stable Cont levothyroxine Anemia 04/29/2021 Assessment & Plan (05/05/2021 10:54 AM CDT): New Refer to GI for workup Syncope 04/29/2021 Assessment & Plan (05/05/2021 10:54 AM CDT): New Refer to neurology Uncontrolled type 2 diabetes mellitus with hyper glycemia 01/27/2021 Assessment & Plan (02/14/2024 8:59 AM CDT): Chronic Uncontrolled Stop januvia and bydureon Start mounjara 2.5mg Assessment & Plan (05/05/2021 10:54 AM CDT): Uncontrolled Increase januvia to 100mg daily Cont bydureon Goal hgba1c<6.5 Assessment & Plan (02/04/2021 6:52 AM CDT): Uncontrolled Add januvia Cont bydureon, xigduo Liver lesion 01/27/2021 Assessment & Plan (02/04/2021 6:51 AM CDT): New Needs further evaluatin Order MRI liver Abdominal cramping 10/09/2020 Assessment & Plan (10/09/2020 12:20 PM PHARMACEUTICAL SCIENTIST): Persistent Reorder stool cultures Order labs Order gallbladder ultrasound Fever 10/06/2020 Assessment & Plan (11/21/2021 1:37 AM CDT): New Order zpack Order flu/covid test Assessment & Plan (10/07/2020 4:25 AM PHARMACEUTICAL SCIENTIST): New Order COVID test Diarrhea 10/06/2020 Assessment & Plan (11/08/2020 6:06 AM PHARMACEUTICAL SCIENTIST): Uncontrolled Start xifaxan Assessment & Plan (10/09/2020 12:20 PM PHARMACEUTICAL SCIENTIST): Persistent Reorder stool cultures Order labs Order gallbladder ultrasound Start Questran Assessment & Plan (10/07/2020 4:25 AM PHARMACEUTICAL SCIENTIST): New Order lomotil BRAT diet Order COVID Nausea 05/06/2020 Assessment & Plan (10/31/2024 3:47 PM PHARMACEUTICAL SCIENTIST): New Order zofran prn Assessment & Plan (10/09/2020 12:20 PM PHARMACEUTICAL SCIENTIST): Persistent Reorder stool cultures Order labs Order gallbladder ultrasound Assessment & Plan (07/01/2020 2:08 AM CDT): Uncontrolled Start zofran PRN Assessment & Plan (05/18/2020 7:48 PM CDT): Likely secondary to the ozempic. Stopped Order labs Dermatitis 04/30/2020 Assessment & Plan (01/18/2023 2:47 PM CDT): Chronic Order prednisone Assessment & Plan (05/11/2020 4:02 PM CDT): New Order zte Diabetic polyneuropathy asso ciated with type 2 diabetes mellitus 04/16/2020 Assessment & Plan (09/04/2023 6:21 AM PHARMACEUTICAL SCIENTIST): Chronic Stable Cont lyrica Assessment & Plan (04/10/2023 9:49 PM CDT): Chronic Stable Cont lyrica Assessment & Plan (12/20/2022 12:22 PM CDT): Chronic Cont lyrica Assessment & Plan (08/31/2020 6:28 AM PHARMACEUTICAL SCIENTIST): Stable Cont lyrica Assessment & Plan (04/16/2020 8:41 AM CDT): Stable Cont lyrica Burning sensation of foot 01/01/2019 Assessment & Plan (10/12/2024 7:02 PM PHARMACEUTICAL SCIENTIST): New Secondary to neuropathy Start lyrica Assessment & Plan (09/14/2022 6:11 AM PHARMACEUTICAL SCIENTIST): Chronic Stable Cont lyrica Assessment & Plan (12/09/2021 11:40 AM CDT): Chronic secondary to neuropathy Cont lyrica Assessment & Plan (09/11/2019 3:37 PM PHARMACEUTICAL SCIENTIST): Likely diabetic neuropathy - discussed. Better glucose control. Try LYrica. Assessment & Plan (06/05/2019 10:49 AM CDT): Worsening, likely diabetic neuropathy - increase gabapentin to BID PRN Assessment & Plan (01/01/2019 3:53 PM CDT): Likely diabetic neuropathy - will trial gabapentin at bedtime Hypertriglyceridemia 11/25/2018 Assessment & Plan (10/12/2024 7:03 PM PHARMACEUTICAL SCIENTIST): Chornic Stable Cont lipitor, zetia Goal: TC<200, LDL<100, TG<150 Assessment & Plan (04/16/2020 8:41 AM CDT): Uncontrolled Follow low cholesterol diet Assessment & Plan (09/11/2019 3:36 PM PHARMACEUTICAL SCIENTIST): Stable, no changes. Continue current regimen with statin; repeat labs in 3 months Assessment & Plan (06/05/2019 10:54 AM CDT): Worsening, willing to start meds. Will start Lipitor 20mg, but advised patient can wait 1-2 weeks until the side effects of the Viberzi hopefully subside Assessment & Plan (02/27/2019 4:28 PM CDT): Stable, no changes. Continue current regimen with diet/exercise, repeat labs in 3 months Type 2 diabetes mellitus wit h hyperglycemia, without long-term current use of insulin 11/25/2018 Assessment & Plan (10/12/2024 7:03 PM PHARMACEUTICAL SCIENTIST): Chronic Stable Cont metformin Goal:hgba1c<6.5 Assessment & Plan (04/07/2024 6:46 AM CDT): Chronic Stable Increase mounjara Goal: hgba1c<6.5 Assessment & Plan (09/14/2022 6:10 AM PHARMACEUTICAL SCIENTIST): Chronic Stable Cont xigduo, januvia, bydureon Goal: hgba1c<6.5 Assessment & Plan (12/19/2020 4:48 PM CDT): Chronic Con bydureon, xiguduo Assessment & Plan (11/08/2020 6:06 AM PHARMACEUTICAL SCIENTIST): Uncontrolled Add bydureon Assessment & Plan (10/07/2020 4:25 AM PHARMACEUTICAL SCIENTIST): Worsened Add regular insulin with SSI Cont bydureon, xigudo Recheck labs in 3 months Assessment & Plan (08/31/2020 6:28 AM PHARMACEUTICAL SCIENTIST): Improving Cont bydureon, xigudo Recheck labs in 3 months Assessment & Plan (05/23/2020 10:16 AM CDT): Improving since adding bydureon Cont xigduo , bydureon Assessment & Plan (05/11/2020 4:03 PM CDT): Uncontrolled Add ozempic Cont xigduo Assessment & Plan (05/18/2020 7:46 PM CDT): Stop ozempic Start bydureon Cont xigduo Assessment & Plan (04/16/2020 8:41 AM CDT): Uncontrolled Add ozempic Cont xigduo Assessment & Plan (12/16/2019 12:38 AM CDT): Stable Cont xigduo Get updated labs Assessment & Plan (09/11/2019 3:37 PM PHARMACEUTICAL SCIENTIST): Work on better diet control No med changes Goal A1c less than 7 Xigduo Assessment & Plan (06/06/2019 9:06 AM CDT): Stable, no changes. Continue current regimen. Really focus on better diet and glucose control. NO med changes today. Repeat labs in 3 months. Assessment & Plan (02/27/2019 4:27 PM CDT): Stable, no changes. Continue current regimen with Xigduo. Repeat labs in 3 months again. A1c greatly improved, at 7.1 currently Assessment & Plan (01/01/2019 3:53 PM CDT): Diabetes is improving with treatment. Continue current treatment regimen. Dietary recommendations for ADA diet. Diabetes will be reassessed in 1 month. Continue Tika Worried about development of neuropathy in feet, see below Seasonal allergic rhinitis 11/12/2018 Assessment & Plan (12/16/2019 12:38 AM CDT): New Order covid testing Order zpack, albuterol Assessment & Plan (06/06/2019 9:05 AM CDT): Stable, no changes. Continue current regimen with Flonase PRN Insomnia 11/08/2017 Assessment & Plan (09/04/2023 6:21 AM PHARMACEUTICAL SCIENTIST): Chronic Stable Cont ambien Assessment & Plan (04/10/2023 9:48 PM CDT): Chronic Stable Cont ambien Assessment & Plan (12/20/2022 12:22 PM CDT): Chronic Cont ambien prn Assessment & Plan (09/14/2022 6:12 AM PHARMACEUTICAL SCIENTIST): Chronic Stable Cont ambien Assessment & Plan (08/31/2020 6:29 AM PHARMACEUTICAL SCIENTIST): Stable Cont ambien Assessment & Plan (05/11/2020 4:04 PM CDT): Stable Cont ambien Assessment & Plan (06/06/2019 9:04 AM CDT): Stable, no changes. Continue current regimen with Ambien PRN Moderate episode of recurrent major depressive d isorder 04/17/2017 Assessment & Plan (06/06/2024 9:16 AM CDT): Chronic stable Cont auvelity Assessment & Plan (04/07/2024 6:46 AM CDT): Chronic Better Cont auvelity Assessment & Plan (09/04/2023 6:21 AM PHARMACEUTICAL SCIENTIST): Chronic Stable Cont abilify, lexapro, caplypta Assessment & Plan (04/10/2023 9:47 PM CDT): Chronic Stable Cont caplyta Assessment & Plan (01/18/2023 2:48 PM CDT): Finally improving Cont caplyta Failed: wellbutrin, lexapro, vraylar Refer to psych Assessment & Plan (12/20/2022 12:21 PM CDT): Worsening Uncontrolled Failed: wellbutrin, lexapro, vraylar Start caplypta Refer to psych Assessment & Plan (10/18/2022 6:19 AM PHARMACEUTICAL SCIENTIST): Uncontrolled Start vraylar 3mg daily Cont lexapro Failed: wellbutrin Refer to psych Assessment & Plan (09/14/2022 6:11 AM PHARMACEUTICAL SCIENTIST): Chronic Worsening Add wellbutrin Cont lexapro Assessment & Plan (12/09/2021 11:40 AM CDT): Stable Cont lexapro Assessment & Plan (08/11/2021 5:21 AM PHARMACEUTICAL SCIENTIST): Stable Cont lexapro Assessment & Plan (02/04/2021 6:52 AM CDT): Worsened Increase to lexapro 20mg daily Assessment & Plan (08/31/2020 6:29 AM PHARMACEUTICAL SCIENTIST): Stable Cont lexapro Assessment & Plan (07/01/2020 2:08 AM CDT): Stable Cont lexapro Assessment & Plan (05/11/2020 4:03 PM CDT): Stable Cont lexapro Assessment & Plan (06/06/2019 9:05 AM CDT): Stable, no changes. Continue current regimen with Lexapro GERD (gastroesophageal reflux disease) 6 Assessment & Plan (09/04/2023 6:21 AM PHARMACEUTICAL SCIENTIST): Chronic Stable Cont omeprazole Assessment & Plan (04/10/2023 9:48 PM CDT): Chronic Stable Cont omeprazole Assessment & Plan (08/31/2020 6:28 AM PHARMACEUTICAL SCIENTIST): Stable Cont omeprazole Assessment & Plan (05/11/2020 4:02 PM CDT): Stable Cont omeprazole Assessment & Plan (06/05/2019 10:53 AM CDT): Stable, no changes. Continue current regimen with PPI and Reglan Irritable bowel syndrome with diarrhea 6 Assessment & Plan (12/20/2022 11:48 AM CDT): Chronic Stable Cont bentyl Assessment & Plan (09/14/2022 6:11 AM PHARMACEUTICAL SCIENTIST): Chronic Stable Cont bentyl Assessment & Plan (08/11/2021 5:22 AM PHARMACEUTICAL SCIENTIST): Chronic Cont lomotil Assessment & Plan (02/04/2021 6:51 AM CDT): Not controlled Start lomotil F/u with GI Assessment & Plan (12/19/2020 4:48 PM CDT): Uncontrolled Cont xifaxan Refer to GI Assessment & Plan (06/05/2019 10:55 AM CDT): Started on Viberzi from GI - working really well, but thinks is causing some side effects. Been taking about 1 week - hoping these will subside with time Migraine headache 02/17/2016 Assessment & Plan (09/04/2023 6:21 AM PHARMACEUTICAL SCIENTIST): Chronic Stable Cont relpax prn Assessment & Plan (04/10/2023 9:47 PM CDT): Chronic Stable Cont relpax prn Assessment & Plan (12/20/2022 12:22 PM CDT): Chronic Cont propranolol, relpax Assessment & Plan (09/14/2022 6:11 AM PHARMACEUTICAL SCIENTIST): Stable Cont propranolol, relpax Assessment & Plan (12/09/2021 11:40 AM CDT): Stable Cont propranolol, relpax Assessment & Plan (08/11/2021 5:21 AM PHARMACEUTICAL SCIENTIST): Stable Cont propranolol, relpax Assessment & Plan (08/31/2020 6:27 AM PHARMACEUTICAL SCIENTIST): Stable Cont propranolol, uses relpax, fioricet PRN Assessment & Plan (07/01/2020 2:07 AM CDT): Not controlled Retry fiorinal. If that does not help, will try ubrelvy. Assessment & Plan (05/11/2020 4:01 PM CDT): Stable Cont propranolol, relpax prn Assessment & Plan (06/06/2019 9:05 AM CDT): Worsening lately - is currently taking Inderal and relpax. May be some sinus component. Will try Fiorinal short term Class 2 severe obesity due t o excess calories with serious comorbidity and body mass index (BMI) of 35.0 to 35.9 in adult 02/17/2016 Assessment & Plan (06/06/2019 9:04 AM CDT): BMI Follow-up includes: nutrition counseling, exercise counseling and education provided. Patient understands risks. Resolved Problems Problem Noted Date Diagnosed Date Resolved Date Pure hypercholesterolemia 05/11/2020 Assessment & Plan (12/09/2021 11:38 AM CDT): Stable Cont lipitor Goal: TC<200, LDL<100, TG<150 Assessment & Plan (11/21/2021 1:36 AM CDT): Stable Cont lipitor Goal: TC<200, LDL<100, TG<150 Assessment & Plan (08/11/2021 5:20 AM PHARMACEUTICAL SCIENTIST): Stable Cont lipitor Goal: TC<200, LDL<100, TG<150 Assessment & Plan (05/05/2021 10:54 AM CDT): Stable Cont lipitor Assessment & Plan (12/19/2020 4:49 PM CDT): Chronic Cont vytorin Assessment & Plan (08/31/2020 6:29 AM PHARMACEUTICAL SCIENTIST): Stable Cont lipitor Assessment & Plan (07/01/2020 2:08 AM CDT): Stable Cont lipitor Assessment & Plan (05/11/2020 4:03 PM CDT): Stable Cont lipitor Encounters Date Type Department Care Team Description 03/25/[address] [place] [phone] Fransisca Loza MD 02/09/[address] [place] [phone] Elle Sepulveda MA 01/07/[address] [place] [phone] Fransisca Loza MD [facility] paperwork 01/01/2025 3:15 PM CDT Office Visit [address] [place] [phone] Fransisca Loza MD Wheezing (Primary Dx); Chronic rhinitis; Controlled type 2 diabetes mellitus without complication, without long-term current use of insulin (HCC); Hypertension, essential; Hypertriglyceridemia from Last 3 Months Immunizations Immunization Administration Dates Next Due Influenza, Quadrivalent, Anita l Culture-based MDCK, Preservative Free, Antibiotic Free, Intramuscular 06/24/2023 Influenza, Quadrivalent, Spl it, Preservative Free, Intramuscular 06/25/2018 Influenza, Trivalent, Preser vative Free, Intramuscular 05/24/2024 Influenza, Unspecified 06/12/2023,06/03/2022,06/2021 Moderna SARS-CoV-2 Monovalen t Vaccination (12+ YRS) 07/17/2021,07/07/2021,10/17/2020,09/16 Pfizer Sars-Cov-2 Bivalent V accination (12+ YRS) 10/13/2022 Surgical History Surgery Date Site/Laterality Comments WISDOM TOOTH EXTRACTION COLONOSCOPY 01/18/2021 Dr. Rawls Medical History Medical History Date Comments Migraine GERD (gastroesophageal reflux disease) IBS (irritable bowel syndrome) Obesity Diabetes mellitus (HCC) Nausea with vomiting 05/06/2020 Anemia Anxiety Depression Family History Medical History Relation Name Comments No Known Problems Brother Hyperlipidemia Father Dad Diabetes Father's Sister Aunt Ana and Aunt Mishel No Known Problems Maternal Grandfather Alzheimer's disease Maternal Grandmother Grandma Therese Hyperlipidemia Mother Mom Thyroid disease Mother Mom Diabetes Paternal Grandfather Grandpa Oaks Hyperlipidemia Paternal Grandfather Grandpa Oaks Hypertension Paternal Grandfather Grandpa Oaks Cancer Paternal Grandmother Grandma Margi No Known Problems Sister Relation Name Status Comments Brother Alive Father Dad Alive Father's Sister Aunt Ana and Aunt Mishel Maternal Grandfather Maternal Grandmother Grandma Therese Mother Mom Alive Paternal Grandfather Grandpa Oaks Alive Paternal Grandmother Grandma Margi Sister Alive Social History Tobacco Use Types Packs/Day Years Used Date Smoking Tobacco: Former Cigarettes 0.5 5 Smokeless Tobacco: Never Tobacco Cessation:Counseling Given: Not Answered Comments:QUIT 2009 Alcohol Use Standard Drinks/Week Comments [...] on file Legal Sex Female 8:45 PM PHARMACEUTICAL SCIENTIST Gender Identity Female 05/20/2020 8:57 AM CDT Sexual Orientation Straight 05/20/2020 8: 57 AM CDT Obstetrics History Last Filed Vital Signs Vital Sign Reading Time Taken Comments Blood Pressure 128/82 01/01/2025 3:26 PM CDT Pulse 72 10/29/2024 2:31 PM PHARMACEUTICAL SCIENTIST Temperature 35.9 C (96.7 F) 01/01/2025 3:26 PM CDT Respiratory Rate 16 01/01/2025 3:26 PM CDT Oxygen Saturation 98% 10/29/2024 2:31 PM PHARMACEUTICAL SCIENTIST Inhaled Oxygen Concentration - - Weight 96.2 kg (212 lb) 01/01/2025 3:26 PM CDT Height 175.3 cm (5' 9) 01/01/2025 3:26 PM CDT Body Mass Index 31.31 01/01/2025 3:26 PM CDT Plan of Treatment Health Maintenance Due Date Last Done Comments Hepatitis C Screening 1984 Foot Exam 1984 DTaP/Tdap/Td Vaccine (1 - Tdap) 1995 Varicella Vaccines (1 of 2 - 13+ 2-dose series) 1997 Hepatitis B Screening 2002 Regular Well Visit/Exam 18-64 2002 Pneumococcal vaccine <65 (1 of 2 - PCV) 2003 HPV Vaccines (1 - 3-dose SCD M series) 2011 Cervical Cancer Screening 01/05/2017 01/06/2016 Depression Screening 02/13/2025 02/14/2024, 08/31/2022, 01/27/2021, Additional history exists Influenza Vaccine (#1) 2025 , 06/24/2023, 06/12/2023, Additional history exists Hemoglobin A1C 06/28/2025 12/27/2024, 09/04, 06/04/2024, Additional history exists Lipid Panel 09/27/2025 09/27/2024, 02/01, 08/11/2023, Additional history exists Breast Cancer Screening-Mammogram 10/09/2025 025 Albumin Creatinine Ratio, Urine 12/27/2025 12/27/2024, 09/27/2024, 02/13/2024, Additional history exists eGFR 12/27/2025 12/27/2024, 09/04, 06/04/2024, Additional history exists Dilated Eye Exam 12/06/2026 12/06/2024, 03/14/2022 Covid-19 Vaccine Completed 05/24/2024, , 10/13/2022, Additional history exists Procedures Procedure Name Priority Date/Time Associated Diagnosis Comments ALBUMIN CREATININE RATIO, URINE Routine 12/27/2024 11:21 AM CDT Type 2 diabetes mellitus with hyperlipidemia (HCC) Hypertension, essential Acquired hypothyroidism EGFR Routine 12/27/2024 10:27 AM CDT Type 2 diabetes mellitus with hyperlipidemia (HCC) Hypertension, essential Acquired hypothyroidism HEMOGLOBIN A1C Routine 12/27/2024 10:27 AM CDT Type 2 diabetes mellitus with hyperlipidemia (HCC) Hypertension, essential Acquired hypothyroidism DIABETIC EYE EXAM Routine 12/06/2024 1:4 6 PM CDT SCREENING MAMMOGRAM Schedule Routine, Read Routine (OP Routine) 10/09/2024 LIPID PANEL Routine 09/27/2024 10:39 AM PHARMACEUTICAL SCIENTIST Controlled type 2 diabetes mellitus without complication, without long-term current use of insulin (HCC) Hypertension, essential Acquired hypothyroidism Mixed hyperlipidemia Moderate episode of recurrent major depressive disorder (HCC) THINPREP PAP Routine 01/06/2016 9:51 AM CDT from Last 3 Months or Most Recently Relevant to Health Maintenance Results * (ABNORMAL) Albumin Creatinine Ratio, Urine (12/27/2024 11:21 AM CDT) Albumin Ur 679.0 mg/L Comment: Interpretive Data No reference range established. Current interpretive data was last revised 2019. Creatinine Ur 276.0 mg/dL [facility] Comment: Interpretive Data No reference range established. Current interpretive data was last revised 2019. Albumin Creatinine Ratio, Ur 246(H) 1 - 29 mg/g [facility]ANETTE Urine 12/27/2024 11:2 1 AM CDT 12/27/2024 11:21 AM CDT Fransisca Loza MD LAB URINE ORDERABLES Tonie l Result NANETTE [address] [facility] Department [place] [address] * eGFR (12/27/2024 10:27 AM CDT) eGFR 89 >=60 mL/min/1. 73 m2 Comment: Interpretive Data Reference Interval Normal >/= 90 mL/min/1.73m2 Mildly decreased* 60 - 89 mL/min/1.73m2 Mildly to moderately decreased 45 - 59 mL/min/1.73m2 Moderately to severely decreased 30 - 44 mL/min/1.73m2 Severely decreased 15 - 29 mL/min/1.73m2 Kidney Failure < 15 mL/min/1.73m2 *Relative to young adult level Estimated glomerular filtration rate is determined by the 2020 CKD-EPI equation recommended by the National Kidney Foundation (A Unifying Approach to GFR Estimation: Recommendations of the NKF-ASK Task Force on Reassessing the Inclusion of Race in Diagnosing Kidney Disease, JASN 2020). The CKD-EPI equation should not be used for patients with unstable renal function and has not been validated in children and those over 70. Current interpretive data was last reviewed 2021. Blood 12/27/2024 10:2 7 AM CDT 12/27/2024 11:13 AM CDT Fransisca Loza MD LAB BLOOD ORDERABLES Tonie l Result Performing Organization Address [facility] de Phone Number [id number] [address] * (ABNORMAL) Hemoglobin A1c (12/27/2024 10:27 AM CDT) Hgb A1C 5.9(H) 4.0 - 5.6 % Estimated Average Glucose 123 mg/dL NANETTE Comment: The ADA recommends reporting an estimated Average Glucose (eAG) with all Hemoglobin A1c results using the equation derived from a study of 507 normal and diabetic adults. Minority populations were underrepresented and children were not included. (Diabetes Care 31:7124-9445, 2008). The eAG is not equivalent to a fasting glucose. Blood 12/27/2024 10:2 7 AM CDT 12/27/2024 11:13 AM CDT Result [facility] Fransisca Loza MD LAB BLOOD ORDERABLES Tonie l Result Performing Organization Address [facility] de Phone Number [id number] [address] * Diabetic Eye Exam (12/06/2024 1:46 PM CDT) Historical Provider HEALTH MAINTENANCE Final Result * Screening Mammogram (10/09/2024) Anatomical Region Laterality Modality Breast N/A Mammography 10/09/2024 Historical Provider IMG MAMMO PROCEDURES Tonie l Result * Lipid panel (09/27/2024 10:39 AM PHARMACEUTICAL SCIENTIST) Cholesterol 88 30 - 199 mg/dL Comment: Interpretive Data Ages < or = 19 years Acceptable: <170 mg/dL Borderline high: 170-199 mg/dL High: >or= 200 mg/dL Ages > or = 20 years Desirable: <200 mg/dL Borderline high: 200-239 mg/dL High: >or= 240 mg/dL Literature References: 1. Expert Panel on Integrated Guidelines for Cardiovascular Health and Risk Reduction in Children and Adolescents. Pediatrics 2011;128:S213 2. NCEP Expert Panel. Circulation 2004;110:227 Current Interpretive Data was last revised on 2018. Triglycerides 70 <=149 mg/dL NANETTE Comment: Interpretive Data Ages < or = 9 years Acceptable: <75 mg/dL Borderline high: 75-99 mg/dL High: >or= 100 mg/dL Ages 10 to 20 years Acceptable: <90 mg/dL Borderline high: 90-129 mg/dL High: >or= 130 mg/dL Ages > or = 20 years Desirable: <150 mg/dL Borderline high: 150-199 mg/dL High: 200-499 mg/dL Very high: >or= 499 mg/dL Literature References: 1. Expert Panel on Integrated Guidelines for Cardiovascular Health and Risk Reduction in Children and Adolescents. Pediatrics 2011;128:S213 2. NCEP Expert Panel. Circulation 2004;110:227 Current Interpretive Data was last revised on 2018. HDL 44 >=40 mg/dL NANETTE Comment: Interpretive Data Ages < or = 19 years Acceptable: >45 mg/dL Borderline low: 40-45 mg/dL Low: <40 mg/dL Ages > or = 20 years Desirable: >or= 60 mg/dL Low: <40 mg/dL Literature References: 1. Expert Panel on Integrated Guidelines for Cardiovascular Health and Risk Reduction in Children and Adolescents. Pediatrics 2011;128:S213 2. NCEP Expert Panel. Circulation 2004;110:227 Current Interpretive Data was last revised on 2018. LDL, calculated 29 <=129 mg/dL NANETTE Comment: Interpretive Data Ages < or = 19 years Acceptable: <110 mg/dL Borderline high: 110-129 mg/dL High: >or= 130 mg/dL Ages > or = 20 years Optimal: <100 mg/dL Near optimal: 100-129 mg/dL Borderline high: 130-159 mg/dL High: >160 mg/dL Calculated using the Avila LDL-C estimating equation. This equation was implemented on 2024. Prior to this date LDL-C was estimated using the Friedewald equation. Literature References: 1. Expert Panel on Integrated Guidelines for Cardiovascular Health and Risk Reduction in Children and Adolescents. Pediatrics 2011;128:S213 2. NCEP Expert Panel. Circulation 2004;110:227 3. Austin M et al. SAMIA Cardiol. 2020 January 01;5(5):540-548. doi: 10.1001/jamacardio.2020.0013 Current Interpretive Data was last revised on 2024. Non-HDL Cholesterol 44 mg/dL NANETTE Comment: Interpretive Data Ages < or = 19 years Acceptable: <120 mg/dL Borderline high: 120-144 mg/dL High: >145 mg/dL Ages > or = 20 years When triglycerides are >200 mg/dL, Non-HDL cholesterol is a secondary target of therapy with treatment goals that are 30 mg/dL greater than the LDL cholesterol target. Literature References: 1. Expert Panel on Integrated Guidelines for Cardiovascular Health and Risk Reduction in Children and Adolescents. Pediatrics 2011;128:S213 2. NCEP Expert Panel. Circulation 2004;110:227 Current Interpretive Data was last revised on 2018. Chol/HDL ratio 2 NANETTE Blood 09/27/2024 10:3 9 AM PHARMACEUTICAL SCIENTIST 09/27/2024 10:59 AM PHARMACEUTICAL SCIENTIST us Fransisca Loza MD LAB BLOOD ORDERABLES Tonie pat Result NANETTE [address] [facility] Department of Laboratories [place], [place] [id number] * ThinPrep Pap (01/06/2016 9:51 AM CDT) Thin Prep Pap Smear SEE BELOW () 01/12 2:47 PM CDT [facility] HISTORICAL RESULTS Comment: Shaker Washer ThinPrep Cytology Final Report ThinPrep Pap Specimen Source Cervix/Endocervix Specimen Adequacy Satisfactory for interpretation, endocervical cells (transformation zone) present. Interpretation Negative for intraepithelial lesion or malignancy. 01/13/16 Claim Rep: KEM Perez(ASCP) 01/13/16 Verified By: KEM Perez(ASCP) electronic signature [facility], Department of Pathology [address] [place] [id number] For questions regarding this case, call ext. [phone] CPT Code(s) 09450 Clinical History LMP: [id number] : N : N IUD: N Hormone Therapy: N Postmenopausal: N Previous surgery date and type: N Hysterectomy: N Chemotherapy: N LIYA Exposure: N Radiation: N Previous Abnormal Pap? Details: N Diagnostic or Screening Pap Test: Screening Performed by [employer], [address] [place], [place] [id number] [email or web address], Osvaldo Landon MD - Lab. Director 01/06/2016 9:51 AM CDT 01/06/2016 5:29 PM CDT Allyssa Sy [facility] LAB PATHOLOGY ORDERABLE S Final Result Performing Organization Address [facility]/State/[facility] Co de Phone Number [facility] HISTORICAL RESULTS from Last 3 Months or Most Recently Relevant to Health Maintenance Insurance [employer] , [address] [place] [address] [employer] [place] Care Teams Germination Testing Manager Relationship Specialty Start Date End Date Fransisca Loza MD PCP - General Family Medicine 10/04/21
--- OUTSIDE RECORDS SUMMARY | 2025-04-02 15:33 | XMS_ITS | Referral Summary ---
Author Organization [facility] Address [address] [place] [phone] Care Team Providers Care Meter Shop Superintendent Name Role Phone Fransisca Loza MD Primary Care Provider [phone] Encounters Date Type Department Care Team Description 03/25/[address] [place] [phone] Fransisca Loza MD 02/09/[address] [place] [phone] Elle Sepulveda MA 01/07/[address] [place] [phone] Fransisca Loza MD fmla paperwork 01/01/2025 3:15 PM CDT Office Visit [address] [place] [phone] Fransisac Loza MD Wheezing (Primary Dx); Chronic rhinitis; Controlled type 2 diabetes mellitus without complication, without long-term current use of insulin (HCC); Hypertension, essential; Hypertriglyceridemia from Last 3 Months Allergies Active Allergy Reactions Criticality Noted Date [...] 10/01/19 25 Active blood-glucose meter,continuous ([employer] Painting [employer]or) misc Use as directed 1 each 10/15/19 [...] (two) times a day 180 tablet 12/19/19 25 025 Discontinued pregabalin (LYRICA) 75 mg capsuleIndication s:Burning sensation of foot TAKE 1 CAPSULE(75 MG) BY MOUTH TWICE DAILY 180 capsule 01/06/20 25 025 Discontinued Active Problems Problem Noted Date Diagnosed Date Wheezing 01/01/2025 Assessment & Plan (01/11/2025 11:31 PM CDT): New Order chintan leon Chronic rhinitis 01/01/2025 Abscess of left groin 10/22/2024 Assessment & Plan (10/31/2024 3:47 PM DRINK BOX MECHANIC): New Order bactrim Acute diarrhea 10/22/2024 Assessment & Plan (10/31/2024 3:47 PM DRINK BOX MECHANIC): New Order CBC Likely viral Type 2 diabetes mellitus with hyperlipidemia 05/2025 Assessment & Plan (10/31/2024 3:46 PM DRINK BOX MECHANIC): Chronic DM stable Cont mounjara Goal Hgba1c<6.5 HLP stable Cont lipitor, zetia Goal: TC<200, LDL<100, TG<150 Assessment & Plan (10/12/2024 7:04 PM DRINK BOX MECHANIC): Chronic Stable Cont metformin Goal:hgba1c<6.5 Cont lipitor, zetia Goal: TC<200, LDL<100, TG<150 Onychomycosis of right great toe 04/04/2023 Assessment & Plan (04/10/2023 9:45 PM CDT): New Order lamisil Order LFTs to check monthly for 3 months Hypertension, essential 10/17/2022 Assessment & Plan (10/12/2024 7:02 PM DRINK BOX MECHANIC): Chronic Stable Cont toprol, toprol Goal: SBP<140, DBP<90 Assessment & Plan (06/06/2024 9:16 AM CDT): Chronic Stable Cont propranolol Goal: SBP<140, DBP<90 Assessment & Plan (09/04/2023 6:22 AM DRINK BOX MECHANIC): Chronic Stable Cont lisinopril Goal: SBP<140, DBP<90 Assessment & Plan (04/10/2023 9:45 PM CDT): Chronic Stable Cont lisinopril, propranolol Goal: SBP<140, DBP<90 Assessment & Plan (12/20/2022 11:47 AM CDT): Improved since last time Cont lisinopril Goal: SBP<140, DBP<90 Assessment & Plan (10/18/2022 6:19 AM DRINK BOX MECHANIC): New Uncontrolled Start lisinopril Goal: SBP<140, DBP<90 Panic attacks 10/17/2022 Assessment & Plan (01/18/2023 2:48 PM CDT): Finally improving Cont caplyta Failed: wellbutrin, lexapro, vraylar Refer to psych Assessment & Plan (12/20/2022 12:21 PM CDT): Worsening Uncontrolled Failed: wellbutrin, lexapro, vraylar Start caplypta Refer to psych Assessment & Plan (10/18/2022 6:20 AM DRINK BOX MECHANIC): New Start xanax prn Mixed hyperlipidemia 08/31/2022 Assessment & Plan (06/06/2024 9:16 AM CDT): Chronic Stable Cont lipitor, zetia Goal: TC<200, LDL<100, TG<150 Assessment & Plan (09/04/2023 6:23 AM DRINK BOX MECHANIC): Chronic Uncontrolled Add zetia Cont lpitor Goal: TC<200, LDL<100, TG<150 Assessment & Plan (04/10/2023 9:46 PM CDT): Chronic Stable Cont lipitor Goal: TC<200, LDL<100, TG<150 Assessment & Plan (12/20/2022 11:46 AM CDT): Chronic TG still increased Cont lipitor Goal: TC<200, LDL<100, TG<150 Assessment & Plan (09/14/2022 6:10 AM DRINK BOX MECHANIC): Chronic Stable Cont lipitor Goal: TC<200, LDL<100, TG<150 Nasal congestion 11/03/2021 Assessment & Plan (11/21/2021 1:37 AM CDT): New Order zpack Order flu/covid test Controlled type 2 diabetes m betitoitus without complication, without long-term current use of insulin 08/11/2021 Assessment & Plan (06/06/2024 9:15 AM CDT): Chronic Stable Stopped xigduo because glucose dropped too low with theweight loss Cont moirenejara Goal: hgba1c<6.5 Assessment & Plan (09/04/2023 6:23 AM DRINK BOX MECHANIC): Chronic Stable Cont bydureon, januvia, xigduo xr Goal:hgba1c<6.5 Assessment & Plan (12/20/2022 11:47 AM CDT): Chronic Stable Cont bydureon, januvia, xigduo Goal; Hgba1c<6.5 Assessment & Plan (12/09/2021 11:39 AM CDT): Stable Cont xigduo, januvia, bydureon Goal: hgba1c<6.5 Assessment & Plan (11/21/2021 1:37 AM CDT): Stable Cont xigduo, januvia Goal: hgba1c<6.5 Assessment & Plan (08/11/2021 5:22 AM DRINK BOX MECHANIC): Stable Cont xigduo, januvia Goal: hgba1c<6.5 Acquired hypothyroidism 08/11/2021 Assessment & Plan (10/12/2024 7:01 PM DRINK BOX MECHANIC): Chronic Stable Cont levothyroxine Assessment & Plan (06/06/2024 9:15 AM CDT): Chronic Stable Cont synthroid Assessment & Plan (09/04/2023 6:22 AM DRINK BOX MECHANIC): Chronic stable Assessment & Plan (09/14/2022 6:10 AM DRINK BOX MECHANIC): Stable Cont levothyroxine Assessment & Plan (12/09/2021 11:39 AM CDT): Stable Cont levothyroxine Assessment & Plan (08/11/2021 5:25 AM DRINK BOX MECHANIC): Stable Cont levothyroxine Anemia 04/29/2021 Assessment & [...] 10/09/2020 Assessment & Plan (10/09/2020 12:20 PM DRINK BOX MECHANIC): Persistent Reorder stool cultures Order labs Order gallbladder ultrasound Fever 10/06/2020 Assessment & Plan (11/21/2021 1:37 AM CDT): New Order zpack Order flu/covid test Assessment & Plan (10/07/2020 4:25 AM DRINK BOX MECHANIC): New Order COVID test Diarrhea 10/06/2020 Assessment & Plan (11/08/2020 6:06 AM DRINK BOX MECHANIC): Uncontrolled Start xifaxan Assessment & Plan (10/09/2020 12:20 PM DRINK BOX MECHANIC): Persistent Reorder stool cultures Order labs Order gallbladder ultrasound Start Questran Assessment & Plan (10/07/2020 4:25 AM DRINK BOX MECHANIC): New Order lomotil BRAT diet Order COVID Nausea 05/06/2020 Assessment & Plan (10/31/2024 3:47 PM DRINK BOX MECHANIC): New Order zofran prn Assessment & Plan (10/09/2020 12:20 PM DRINK BOX MECHANIC): Persistent Reorder stool cultures Order labs Order gallbladder ultrasound Assessment & Plan (07/01/2020 2:08 AM CDT): Uncontrolled Start zofran PRN Assessment & Plan (05/18/2020 7:48 PM CDT): Likely secondary to the ozempic. Stopped Order labs Dermatitis 04/30/2020 Assessment & Plan (01/18/2023 2:47 PM CDT): Chronic Order prednisone Assessment & Plan (05/11/2020 4:02 PM CDT): New Order zyrtec Diabetic polyneuropathy asso ciated with type 2 diabetes mellitus 04/16/2020 Assessment & Plan (09/04/2023 6:21 AM DRINK BOX MECHANIC): Chronic Stable Cont lyrica Assessment & Plan (04/10/2023 9:49 PM CDT): Chronic Stable Cont lyrica Assessment & Plan (12/20/2022 12:22 PM CDT): Chronic Cont lyrica Assessment & Plan (08/31/2020 6:28 AM DRINK BOX MECHANIC): Stable Cont lyrica Assessment & Plan (04/16/2020 8:41 AM CDT): Stable Cont lyrica Burning sensation of foot 01/01/2019 Assessment & Plan (10/12/2024 7:02 PM DRINK BOX MECHANIC): New Secondary to neuropathy Start lyrica Assessment & Plan (09/14/2022 6:11 AM DRINK BOX MECHANIC): Chronic Stable Cont lyrica Assessment & Plan (12/09/2021 11:40 AM CDT): Chronic secondary to neuropathy Cont lyrica Assessment & Plan (09/11/2019 3:37 PM DRINK BOX MECHANIC): Likely diabetic neuropathy - discussed. Better glucose control. Try LYrica. Assessment & Plan (06/05/2019 10:49 AM CDT): Worsening, likely diabetic neuropathy - increase gabapentin to BID PRN Assessment & Plan (01/01/2019 3:53 PM CDT): Likely diabetic neuropathy - will trial gabapentin at bedtime Hypertriglyceridemia 11/25/2018 Assessment & Plan (10/12/2024 7:03 PM DRINK BOX MECHANIC): Chornic Stable Cont lipitor, zetia Goal: TC<200, LDL<100, TG<150 Assessment & Plan (04/16/2020 8:41 AM CDT): Uncontrolled Follow low cholesterol diet Assessment & Plan (09/11/2019 3:36 PM DRINK BOX MECHANIC): Stable, no changes. Continue current regimen with [...] 11/25/2018 Assessment & Plan (10/12/2024 7:03 PM DRINK BOX MECHANIC): Chronic Stable Cont metformin Goal:hgba1c<6.5 Assessment & Plan (04/07/2024 6:46 AM CDT): Chronic Stable Increase mounjara Goal: hgba1c<6.5 Assessment & Plan (09/14/2022 6:10 AM DRINK BOX MECHANIC): Chronic Stable Cont xigduo, januvia, bydureon Goal: hgba1c<6.5 Assessment & Plan (12/19/2020 4:48 PM CDT): Chronic Con bydureon, xiguduo Assessment & Plan (11/08/2020 6:06 AM DRINK BOX MECHANIC): Uncontrolled Add bydureon Assessment & Plan (10/07/2020 4:25 AM DRINK BOX MECHANIC): Worsened Add regular insulin with SSI Cont bydureon, xigudo Recheck labs in 3 months Assessment & Plan (08/31/2020 6:28 AM DRINK BOX MECHANIC): Improving Cont bydureon, xigudo Recheck labs in [...] labs Assessment & Plan (09/11/2019 3:37 PM DRINK BOX MECHANIC): Work on better diet control No med [...] will be reassessed in 1 month. Continue Xigduo Worried about development of neuropathy in feet, see below Seasonal allergic rhinitis 11/12/2018 Assessment & Plan (12/16/2019 12:38 AM CDT): New Order covid testing Order zpack, albuterol Assessment & Plan (06/06/2019 9:05 AM CDT): Stable, no changes. Continue current regimen with Flonase PRN Insomnia 11/08/2017 Assessment & Plan (09/04/2023 6:21 AM DRINK BOX MECHANIC): Chronic Stable Cont ambien Assessment & Plan (04/10/2023 9:48 PM CDT): Chronic Stable Cont ambien Assessment & Plan (12/20/2022 12:22 PM CDT): Chronic Cont ambien prn Assessment & Plan (09/14/2022 6:12 AM DRINK BOX MECHANIC): Chronic Stable Cont ambien Assessment & Plan (08/31/2020 6:29 AM DRINK BOX MECHANIC): Stable Cont ambien Assessment & Plan (05/11/2020 [...] auvelity Assessment & Plan (09/04/2023 6:21 AM DRINK BOX MECHANIC): Chronic Stable Cont abilify, lexapro, caplypta Assessment & Plan (04/10/2023 9:47 PM CDT): Chronic Stable Cont caplyta Assessment & Plan (01/18/2023 2:48 PM CDT): Finally improving Cont caplyta Failed: wellbutrin, lexapro, vraylar Refer to psych Assessment & Plan (12/20/2022 12:21 PM CDT): Worsening Uncontrolled Failed: wellbutrin, lexapro, vraylar Start caplypta Refer to psych Assessment & Plan (10/18/2022 6:19 AM DRINK BOX MECHANIC): Uncontrolled Start vraylar 3mg daily Cont lexapro Failed: wellbutrin Refer to psych Assessment & Plan (09/14/2022 6:11 AM DRINK BOX MECHANIC): Chronic Worsening Add wellbutrin Cont lexapro Assessment & Plan (12/09/2021 11:40 AM CDT): Stable Cont lexapro Assessment & Plan (08/11/2021 5:21 AM DRINK BOX MECHANIC): Stable Cont lexapro Assessment & Plan (02/04/2021 6:52 AM CDT): Worsened Increase to lexapro 20mg daily Assessment & Plan (08/31/2020 6:29 AM DRINK BOX MECHANIC): Stable Cont lexapro Assessment & Plan (07/01/2020 2:08 AM CDT): Stable Cont lexapro Assessment & Plan (05/11/2020 4:03 PM CDT): Stable Cont lexapro Assessment & Plan (06/06/2019 9:05 AM CDT): Stable, no changes. Continue current regimen with Lexapro GERD (gastroesophageal reflux disease) 6 Assessment & Plan (09/04/2023 6:21 AM DRINK BOX MECHANIC): Chronic Stable Cont omeprazole Assessment & Plan (04/10/2023 9:48 PM CDT): Chronic Stable Cont omeprazole Assessment & Plan (08/31/2020 6:28 AM DRINK BOX MECHANIC): Stable Cont omeprazole Assessment & Plan (05/11/2020 4:02 PM CDT): Stable Cont omeprazole Assessment & Plan (06/05/2019 10:53 AM CDT): Stable, no changes. Continue current regimen with PPI and Reglan Irritable bowel syndrome with diarrhea 6 Assessment & Plan (12/20/2022 11:48 AM CDT): Chronic Stable Cont bentyl Assessment & Plan (09/14/2022 6:11 AM DRINK BOX MECHANIC): Chronic Stable Cont bentyl Assessment & Plan (08/11/2021 5:22 AM DRINK BOX MECHANIC): Chronic Cont lomotil Assessment & Plan (02/04/2021 [...] 02/17/2016 Assessment & Plan (09/04/2023 6:21 AM DRINK BOX MECHANIC): Chronic Stable Cont relpax prn Assessment & Plan (04/10/2023 9:47 PM CDT): Chronic Stable Cont relpax prn Assessment & Plan (12/20/2022 12:22 PM CDT): Chronic Cont propranolol, relpax Assessment & Plan (09/14/2022 6:11 AM DRINK BOX MECHANIC): Stable Cont propranolol, relpax Assessment & Plan (12/09/2021 11:40 AM CDT): Stable Cont propranolol, relpax Assessment & Plan (08/11/2021 5:21 AM DRINK BOX MECHANIC): Stable Cont propranolol, relpax Assessment & Plan (08/31/2020 6:27 AM DRINK BOX MECHANIC): Stable Cont propranolol, uses relpax, fioricet PRN [...] TG<150 Assessment & Plan (08/11/2021 5:20 AM DRINK BOX MECHANIC): Stable Cont lipitor Goal: TC<200, LDL<100, TG<150 Assessment & Plan (05/05/2021 10:54 AM CDT): Stable Cont lipitor Assessment & Plan (12/19/2020 4:49 PM CDT): Chronic Cont vytorin Assessment & Plan (08/31/2020 6:29 AM DRINK BOX MECHANIC): Stable Cont lipitor Assessment & Plan (07/01/2020 2:08 AM CDT): Stable Cont lipitor Assessment & Plan (05/11/2020 4:03 PM CDT): Stable Cont lipitor Immunizations Immunization Administration Dates Next Due Influenza, Quadrivalent, Anita l Culture-based MDCK, Preservative Free, Antibiotic Free, Intramuscular 06/24/2023 Influenza, Quadrivalent, Spl it, Preservative Free, Intramuscular 06/25/2018 Influenza, Trivalent, Preser vative Free, Intramuscular 05/24/2024 Influenza, Unspecified 06/12/2023,06/03/2022,06/2021 Moderna SARS-CoV-2 Monovalen t Vaccination (12+ YRS) 07/17/2021,07/07/2021,10/17/2020,09/16 Pfizer Sars-Cov-2 Bivalent V accination (12+ YRS) 10/13/2022 Social History Tobacco Use Types Packs/Day Years [...] on file Legal Sex Female 8:45 PM DRINK BOX MECHANIC Gender Identity Female 05/20/2020 8:57 AM CDT Sexual Orientation Straight 05/20/2020 8: 57 AM CDT Last Filed Vital Signs Vital Sign Reading Time Taken Comments Blood Pressure 128/82 01/01/2025 3:26 PM CDT Pulse 72 10/29/2024 2:31 PM DRINK BOX MECHANIC Temperature 35.9 C (96.7 F) 01/01/2025 3:26 PM CDT Respiratory Rate 16 01/01/2025 3:26 PM CDT Oxygen Saturation 98% 10/29/2024 2:31 PM DRINK BOX MECHANIC Inhaled Oxygen Concentration - - Weight 96.2 kg (212 lb) 01/01/2025 3:26 PM CDT Height 175.3 cm (5' 9) 01/01/2025 3:26 PM CDT Body Mass Index 31.31 01/01/2025 3:26 PM CDT Plan of Treatment Not on file Procedures Procedure Name Priority Date/Time Associated Diagnosis [...] 10/09/2024 LIPID PANEL Routine 09/27/2024 10:39 AM DRINK BOX MECHANIC Controlled type 2 diabetes mellitus without complication, [...] last revised 2019. Creatinine Ur 276.0 mg/dL NANETTE MUELLER Comment: Interpretive Data No reference range established. Current interpretive data was last revised 2019. Albumin Creatinine Ratio, Ur 246(H) 1 - 29 mg/g NANETTE MUELLER Urine 12/27/2024 11:2 1 AM CDT 12/27/2024 11:21 AM CDT Fransisca Loza MD LAB URINE ORDERABLES Tonie l Result Performing Organization Address [facility] Co de Phone Number NANETTE [address] [place] [address] * eGFR (12/27/2024 10:27 AM CDT) eGFR [...] ORDERABLES Tonie l Result Performing Organization Address City/[facility]/ZIP Co de Phone Number [address] [place] [address] * (ABNORMAL) Hemoglobin A1c (12/27/2024 10:27 AM CDT) Hgb A1C 5.9(H) 4.0 - 5.6 % Estimated Average Glucose 123 mg/dL NANETTE MUELLER Comment: The ADA recommends reporting an estimated Average Glucose (eAG) with all Hemoglobin A1c results using the equation derived from a study of 507 normal and diabetic adults. Minority populations were underrepresented and children were not included. (Diabetes Care 31:0823-4711, 2008). The eAG is not equivalent to a fasting glucose. Blood 12/27/2024 10:2 7 AM CDT 12/27/2024 11:13 AM CDT Fransisca Loza MD LAB BLOOD ORDERABLES Tonie l Result NANETTE [address] [facility] Department [place] [address] * Diabetic Eye Exam (12/06/2024 1:46 PM CDT) Historical Provider HEALTH MAINTENANCE Final Result * Screening Mammogram (10/09/2024) Anatomical Region Laterality Modality Breast N/A Mammography 10/09/2024 Historical Provider IMG MAMMO PROCEDURES Tonie l Result * Lipid panel (09/27/2024 10:39 AM DRINK BOX MECHANIC) Cholesterol 88 30 - 199 mg/dL Comment: [...] on 2018. Triglycerides 70 <=149 mg/dL NANETTE MUELLER Comment: Interpretive Data Ages < or = [...] mg/dL High: >160 mg/dL Calculated using the Austin LDL-C estimating equation. This equation was implemented on 2024. Prior to this date LDL-C was estimated using the Friedewald equation. Literature References: 1. Expert Panel on Integrated Guidelines for Cardiovascular Health and Risk Reduction in Children and Adolescents. Pediatrics 2011;128:S213 2. NCEP Expert Panel. Circulation 2004;110:227 3. Austin Ulloa al. SAMIA Cardiol. 2020 January 01;5(5):540-548. doi: [...] revised on 2018. Chol/HDL ratio 2 NANETTE MUELLER Blood 09/27/2024 10:3 9 AM DRINK BOX MECHANIC 09/27/2024 10:59 AM DRINK BOX MECHANIC us Fransisca Loza MD LAB BLOOD ORDERABLES Tonie pat Result NANETTE [address] [facility] Department [place] [address] * ThinPrep Pap (01/06/2016 9:51 AM CDT) Thin Prep Pap Smear SEE BELOW () 01/12 2:47 PM CDT [facility] HISTORICAL RESULTS Comment: Hydrodynamics Teacher ThinPrep Cytology Final Report ThinPrep Pap Specimen Source Cervix/Endocervix Specimen Adequacy Satisfactory for interpretation, endocervical cells (transformation zone) present. Interpretation Negative for intraepithelial lesion or malignancy. 01/13/16 Greenhouse Worker: KEM Perez(ASCP) 01/13/16 Verified By: KEM Perez(ASCP) electronic signature [facility], Department of Pathology [address] [place] [phone] For questions regarding this case, call ext. [phone] CPT Code(s) 00664 Clinical History LMP: [id number] : N : N IUD: N Hormone Therapy: N Postmenopausal: N Previous surgery date and type: N Hysterectomy: N Chemotherapy: N LIYA Exposure: N Radiation: N Previous Abnormal Pap? Details: N Diagnostic or Screening Pap Test: Screening Performed by [employer], [address] [place] [id number] [email or web address], Osvaldo Landon MD - Lab. Director 01/06/2016 9:51 AM CDT 01/06/2016 5:29 PM CDT us Allyssa Sy [facility] LAB PATHOLOGY ORDERABLE S Final Result Performing Organization Address City/State/[facility] Co de Phone Number [facility] HISTORICAL RESULTS from Last 3 Months or Most Recently Relevant to Health Maintenance Insurance [employer] O[employer] [place] [place] Care Teams Meter Shop Superintendent Relationship Specialty Start Date End Date Fransisca Loza MD PCP - General Family Medicine 10/04/21
[2025-04-02 17:01] LABS: Syphilis IgG/IgM Antibody Non-Reactive (Nonreactive)
== END 2025-04-02 15:31 | disposition home or self-care (01) ==
LOC: ANHLAB 15:31
PROVIDERS: PCP Family Medicine; Visit Provider Obstetrics & Gynecology
DX: Z20.2 Contact with and (suspected) exposure to infections with a predominantly sexual mode of transmission (principal)
CPT/HCPCS: 36415; 86593; 87389

== ENCOUNTER 2025-04-27 12:20 | Outpatient (CLI) | payer BC, SELFPAY ==
--- NOTE | ~2025-04-27 | MMUS_ITS ---
EXAMINATION: MM diagnostic farheen LT w naila, US breast LT limited INDICATION: 40-year old female; BI-RADS 3, short-term follow-up probably benign left breast sonographic finding. COMPARISON: 10/29/2024, and 10/09/2024 TECHNIQUE: Digital breast tomosynthesis True lateral and CC and MLO views of LEFT breasts were obtained with computer-aided detection to assist in interpretation of the study. FINDINGS: There are scattered areas of fibroglandular density. Probably benign Focal asymmetry in the inner central and subareolar left breast is redemonstrated and has remained unchanged in the interval. There are no other suspicious masses, calcifications, architectural distortion or other abnormality in left breast. LEFT BREAST ULTRASOUND FINDINGS: Targeted evaluation of the area of concern was completed. Heterogeneous parenchymal pattern. At 12:00 location, near the nipple a probably benign 0.8 x 0.8 x 0.3 cm circumscribed oval-shaped mass is redemonstrated and is unchanged in the interval. IMPRESSION: Left breast probably benign mammographic and sonographic finding has demonstrated 6 months stability since the initial evaluation on 10/29/2024. RECOMMENDATION: 6 month follow-up BILATERAL diagnostic mammography and LEFT BREAST ultrasound. BI-RADS 3, PROBABLY BENIGN Reviewed, dictated and finalized at location B. IMPRESSION: Left breast probably benign mammographic and sonographic finding has demonstrat ed 6 months stability since the initial evaluation on 10/29/2024. RECOMMENDATION: 6 month follow-up BILATERAL diagnostic mammography and LEFT BREAST ultrasound. BI-RADS 3, PROBABLY BENIGN
--- OUTSIDE RECORDS SUMMARY | 2025-04-27 12:29 | XMS_ITS | Clinical Summary ---
Author Organization [facility] [place] Address [address] [place] [address] Care Team Providers Care Cloth Folder Machine Name Role Phone Fransisca Loza MD Primary Care Provider [phone] Allergies Active Allergy Reactions Criticality Noted Date Comments Penicillamine Hives Medium 12/23/2018 Medications eletriptan (RELPAX) 40 mg tablet Take 1 tablet (40 mg total) by mouth once as needed for headaches 019 Active Cryselle, 28, 0.3-30 mg-mcg per tablet Take 1 tablet by mouth daily 022 Active zolpidem (AMBIEN) 5 mg tabletIndications :Insomnia, unspecified type Take 1 tablet (5 mg total) by mouth nightly as needed for sleep 30 tablet 5 022 Active diphenoxylate-atr opine (LOMOTIL) 2.5-0.025 mg per tabletIndications :Irritable bowel syndrome with diarrhea Take 1 tablet by mouth 4 (four) times a day as needed for diarrhea 90 tablet 022 Active hydrOXYzine (ATARAX) 25 mg tablet TAKE 1 TABLET(25 MG) BY MOUTH TWICE DAILY NEEDED FOR ITCHING 60 tablet 023 Active dicyclomine (BENTYL) 20 mg tablet TAKE 1 TABLET THREE TIMES A DAY NEEDED FOR DIARRHEA 270 tablet 3 023 Active tiZANidine (ZANAFLEX) 4 mg tablet TAKE 1 TABLET EVERY 8 HOURS NEEDED FOR MUSCLE SPASMS 270 tablet 3 024 Active atorvastatin (LIPITOR) 20 mg tabletIndications :Hypertriglycerid emia Take 1 tablet (20 mg total) by mouth daily 90 tablet 3 025 Active blood-glucose meter,continuous (Dexcom G7 Post Commander) misc Use as directed 1 each 025 Active Additional Information Patient not taking.Reported on 04/09/2025 blood-glucose sensor (Dexcom G7 Sensor) device Use as directed 5 each 2 025 Active Additional Information Patient not taking.Reported on 04/09/2025 FLUoxetine (PROzac) 20 mg capsule Take 1 capsule (20 mg total) by mouth daily 30 capsule 025 Active ondansetron ODT (ZOFRAN-ODT) 4 mg disintegrating tabletIndications :Nausea Take 1 tablet (4 mg total) by mouth every 8 (eight) hours as needed for nausea or vomiting 20 tablet 025 Active ezetimibe (ZETIA) 10 mg tabletIndications :Mixed hyperlipidemia TAKE 1 TABLET(10 MG) BY MOUTH DAILY 100 tablet 1 025 Active tirzepatide (Mounjaro) 7.5 mg/0.5 mL pen injector injectionIndicati ons:Controlled type 2 diabetes mellitus without complication, without long-term current use of insulin Inject 0.5 mL (7.5 mg total) under the skin every 7 days 2 mL 3 025 Active budesonide-glycop yr-formoterol (Breztri Aerosphere) 160-9-4.8 mcg/actuation inhalerIndication s:Wheezing Inhale 2 puffs 2 (two) times a day 10.7 g 025 Active Additional Information Patient not taking.Reported on 04/09/2025 montelukast (SINGULAIR) 10 mg tabletIndications :Wheezing,Chronic rhinitis TAKE 1 TABLET(10 MG) BY MOUTH EVERY NIGHT 90 tablet 025 Active pregabalin (LYRICA) 75 mg capsuleIndication s:Burning sensation of foot TAKE 1 CAPSULE(75 MG) BY MOUTH TWICE DAILY 180 capsule 025 Active propranoloL (INDERAL) 80 mg tablet TAKE 1 TABLET(80 MG) BY MOUTH TWICE DAILY 180 tablet 025 Active ALPRAZolam (XANAX) 0.25 mg tablet TAKE 1 TABLET(0.25 MG) BY MOUTH EVERY NIGHT NEEDED FOR ANXIETY 30 tablet 025 Active dextroamphetamine -amphetamine XR (ADDERALL XR) 10 mg 24 hr capsuleIndication s:Adult attention deficit disorder Take 1 capsule (10 mg total) by mouth every morning 30 capsule 025 Active dextromethorphan- bupropion (Auvelity) 45-105 mg tablet, IR & ER, biphasicIndicatio ns:Moderate episode of recurrent major depressive disorder (HCC) TAKE 1 TABLET BY MOUTH TWICE DAILY 60 tablet 5 025 Active dextromethorphan- bupropion (Auvelity) 45-105 mg tablet, IR & ER, biphasicIndicatio ns:Moderate episode of recurrent major depressive disorder (HCC) TAKE 1 TABLET BY MOUTH TWICE DAILY 60 tablet 2 025 2024 Discontinued Active Problems Problem Noted Date Diagnosed Date Adult attention deficit disorder 04/09/2025 Assessment & Plan (04/19/2025 9:43 PM CDT): Orders: dextroamphetamine-amphetamine XR (ADDERALL XR) 10 mg 24 hr capsule; Take 1 capsule (10 mg total) by mouth every morning Wheezing 01/01/2025 Assessment & Plan (01/11/2025 11:31 PM CDT): New Order chintan leon Chronic rhinitis 01/01/2025 Abscess of left groin 10/22/2024 Assessment & Plan (10/31/2024 3:47 PM DELINQUENT NOTICE MACHINE OPERATOR): New Order bactrim Acute diarrhea 10/22/2024 Assessment & Plan (10/31/2024 3:47 PM DELINQUENT NOTICE MACHINE OPERATOR): New Order CBC Likely viral Type 2 diabetes mellitus with hyperlipidemia 05/2025 Assessment & Plan (10/31/2024 3:46 PM DELINQUENT NOTICE MACHINE OPERATOR): Chronic DM stable Cont mounjara Goal Hgba1c<6.5 HLP stable Cont lipitor, zetia Goal: TC<200, LDL<100, TG<150 Assessment & Plan (10/12/2024 7:04 PM DELINQUENT NOTICE MACHINE OPERATOR): Chronic Stable Cont metformin Goal:hgba1c<6.5 Cont lipitor, zetia Goal: TC<200, LDL<100, TG<150 Onychomycosis of right great toe 04/04/2023 Assessment & Plan (04/10/2023 9:45 PM CDT): New Order lamisil Order LFTs to check monthly for 3 months Hypertension, essential 10/17/2022 Assessment & Plan (10/12/2024 7:02 PM DELINQUENT NOTICE MACHINE OPERATOR): Chronic Stable Cont toprol, toprol Goal: SBP<140, DBP<90 Assessment & Plan (06/06/2024 9:16 AM CDT): Chronic Stable Cont propranolol Goal: SBP<140, DBP<90 Assessment & Plan (09/04/2023 6:22 AM DELINQUENT NOTICE MACHINE OPERATOR): Chronic Stable Cont lisinopril Goal: SBP<140, DBP<90 Assessment & Plan (04/10/2023 9:45 PM CDT): Chronic Stable Cont lisinopril, propranolol Goal: SBP<140, DBP<90 Assessment & Plan (12/20/2022 11:47 AM CDT): Improved since last time Cont lisinopril Goal: SBP<140, DBP<90 Assessment & Plan (10/18/2022 6:19 AM DELINQUENT NOTICE MACHINE OPERATOR): New Uncontrolled Start lisinopril Goal: SBP<140, DBP<90 Panic attacks 10/17/2022 Assessment & Plan (01/18/2023 2:48 PM CDT): Finally improving Cont caplyta Failed: wellbutrin, lexapro, vraylar Refer to psych Assessment & Plan (12/20/2022 12:21 PM CDT): Worsening Uncontrolled Failed: wellbutrin, lexapro, vraylar Start caplypta Refer to psych Assessment & Plan (10/18/2022 6:20 AM DELINQUENT NOTICE MACHINE OPERATOR): New Start xanax prn Mixed hyperlipidemia 08/31/2022 Assessment & Plan (04/19/2025 9:43 PM CDT): Orders: Hemoglobin A1c; Future Comprehensive metabolic panel; Future Lipid panel; Future Assessment & Plan (06/06/2024 9:16 AM CDT): Chronic Stable Cont lipitor, zetia Goal: TC<200, LDL<100, TG<150 Assessment & Plan (09/04/2023 6:23 AM DELINQUENT NOTICE MACHINE OPERATOR): Chronic Uncontrolled Add zetia Cont lpitor Goal: TC<200, LDL<100, TG<150 Assessment & Plan (04/10/2023 9:46 PM CDT): Chronic Stable Cont lipitor Goal: TC<200, LDL<100, TG<150 Assessment & Plan (12/20/2022 11:46 AM CDT): Chronic TG still increased Cont lipitor Goal: TC<200, LDL<100, TG<150 Assessment & Plan (09/14/2022 6:10 AM DELINQUENT NOTICE MACHINE OPERATOR): Chronic Stable Cont lipitor Goal: TC<200, LDL<100, TG<150 Nasal congestion 11/03/2021 Assessment & Plan (11/21/2021 1:37 AM CDT): New Order zpack Order flu/covid test Controlled type 2 diabetes m ellitus without complication, without long-term current use of insulin 08/11/2021 Assessment & Plan (04/19/2025 9:43 PM CDT): Chronic Stable Cont metformin Goal Hgba1c<6.5 Orders: Hemoglobin A1c; Future Comprehensive metabolic panel; Future Lipid panel; Future Assessment & Plan (06/06/2024 9:15 AM CDT): Chronic Stable Stopped marimar because glucose dropped too low with theweight loss Cont sudarshan Goal: hgba1c<6.5 Assessment & Plan (09/04/2023 6:23 AM DELINQUENT NOTICE MACHINE OPERATOR): Chronic Stable Cont brett merchant xigduo xr Goal:hgba1c<6.5 Assessment & Plan (12/20/2022 11:47 AM CDT): Chronic Stable Cont brett merchant xigduo Goal; Hgba1c<6.5 Assessment & Plan (12/09/2021 11:39 AM CDT): Stable Cont brett minaya mayur Goal: hgba1c<6.5 Assessment & Plan (11/21/2021 1:37 AM CDT): Stable Cont brett minaya Goal: hgba1c<6.5 Assessment & Plan (08/11/2021 5:22 AM DELINQUENT NOTICE MACHINE OPERATOR): Stable Cont brett minaya Goal: hgba1c<6.5 Acquired hypothyroidism 08/11/2021 Assessment & Plan (10/12/2024 7:01 PM DELINQUENT NOTICE MACHINE OPERATOR): Chronic Stable Cont levothyroxine Assessment & Plan (06/06/2024 9:15 AM CDT): Chronic Stable Cont synthroid Assessment & Plan (09/04/2023 6:22 AM DELINQUENT NOTICE MACHINE OPERATOR): Chronic stable Assessment & Plan (09/14/2022 6:10 AM DELINQUENT NOTICE MACHINE OPERATOR): Stable Cont levothyroxine Assessment & Plan (12/09/2021 11:39 AM CDT): Stable Cont levothyroxine Assessment & Plan (08/11/2021 5:25 AM DELINQUENT NOTICE MACHINE OPERATOR): Stable Cont levothyroxine Anemia 04/29/2021 Assessment & [...] 10/09/2020 Assessment & Plan (10/09/2020 12:20 PM DELINQUENT NOTICE MACHINE OPERATOR): Persistent Reorder stool cultures Order labs Order gallbladder ultrasound Fever 10/06/2020 Assessment & Plan (11/21/2021 1:37 AM CDT): New Order zpack Order flu/covid test Assessment & Plan (10/07/2020 4:25 AM DELINQUENT NOTICE MACHINE OPERATOR): New Order COVID test Diarrhea 10/06/2020 Assessment & Plan (11/08/2020 6:06 AM DELINQUENT NOTICE MACHINE OPERATOR): Uncontrolled Start xifaxan Assessment & Plan (10/09/2020 12:20 PM DELINQUENT NOTICE MACHINE OPERATOR): Persistent Reorder stool cultures Order labs Order gallbladder ultrasound Start Questran Assessment & Plan (10/07/2020 4:25 AM DELINQUENT NOTICE MACHINE OPERATOR): New Order lomotil BRAT diet Order COVID Nausea 05/06/2020 Assessment & Plan (10/31/2024 3:47 PM DELINQUENT NOTICE MACHINE OPERATOR): New Order zofran prn Assessment & Plan (10/09/2020 12:20 PM DELINQUENT NOTICE MACHINE OPERATOR): Persistent Reorder stool cultures Order labs Order [...] 04/16/2020 Assessment & Plan (09/04/2023 6:21 AM DELINQUENT NOTICE MACHINE OPERATOR): Chronic Stable Cont lyrica Assessment & Plan (04/10/2023 9:49 PM CDT): Chronic Stable Cont lyrica Assessment & Plan (12/20/2022 12:22 PM CDT): Chronic Cont lyrica Assessment & Plan (08/31/2020 6:28 AM DELINQUENT NOTICE MACHINE OPERATOR): Stable Cont lyrica Assessment & Plan (04/16/2020 8:41 AM CDT): Stable Cont lyrica Burning sensation of foot 01/01/2019 Assessment & Plan (10/12/2024 7:02 PM DELINQUENT NOTICE MACHINE OPERATOR): New Secondary to neuropathy Start lyrica Assessment & Plan (09/14/2022 6:11 AM DELINQUENT NOTICE MACHINE OPERATOR): Chronic Stable Cont lyrica Assessment & Plan (12/09/2021 11:40 AM CDT): Chronic secondary to neuropathy Cont lyrica Assessment & Plan (09/11/2019 3:37 PM DELINQUENT NOTICE MACHINE OPERATOR): Likely diabetic neuropathy - discussed. Better glucose control. Try LYrica. Assessment & Plan (06/05/2019 10:49 AM CDT): Worsening, likely diabetic neuropathy - increase gabapentin to BID PRN Assessment & Plan (01/01/2019 3:53 PM CDT): Likely diabetic neuropathy - will trial gabapentin at bedtime Hypertriglyceridemia 11/25/2018 Assessment & Plan (10/12/2024 7:03 PM DELINQUENT NOTICE MACHINE OPERATOR): Chornic Stable Cont lipitor, zetia Goal: TC<200, LDL<100, TG<150 Assessment & Plan (04/16/2020 8:41 AM CDT): Uncontrolled Follow low cholesterol diet Assessment & Plan (09/11/2019 3:36 PM DELINQUENT NOTICE MACHINE OPERATOR): Stable, no changes. Continue current regimen with [...] 11/25/2018 Assessment & Plan (10/12/2024 7:03 PM DELINQUENT NOTICE MACHINE OPERATOR): Chronic Stable Cont metformin Goal:hgba1c<6.5 Assessment & Plan (04/07/2024 6:46 AM CDT): Chronic Stable Increase mounjara Goal: hgba1c<6.5 Assessment & Plan (09/14/2022 6:10 AM DELINQUENT NOTICE MACHINE OPERATOR): Chronic Stable Cont xigduo, januvia, bydureon Goal: hgba1c<6.5 Assessment & Plan (12/19/2020 4:48 PM CDT): Chronic Con bydureon, xiguduo Assessment & Plan (11/08/2020 6:06 AM DELINQUENT NOTICE MACHINE OPERATOR): Uncontrolled Add bydureon Assessment & Plan (10/07/2020 4:25 AM DELINQUENT NOTICE MACHINE OPERATOR): Worsened Add regular insulin with SSI Cont bydureon, xigudo Recheck labs in 3 months Assessment & Plan (08/31/2020 6:28 AM DELINQUENT NOTICE MACHINE OPERATOR): Improving Cont bydureon, xigudo Recheck labs in [...] labs Assessment & Plan (09/11/2019 3:37 PM DELINQUENT NOTICE MACHINE OPERATOR): Work on better diet control No med [...] 11/08/2017 Assessment & Plan (09/04/2023 6:21 AM DELINQUENT NOTICE MACHINE OPERATOR): Chronic Stable Cont ambien Assessment & Plan (04/10/2023 9:48 PM CDT): Chronic Stable Cont ambien Assessment & Plan (12/20/2022 12:22 PM CDT): Chronic Cont ambien prn Assessment & Plan (09/14/2022 6:12 AM DELINQUENT NOTICE MACHINE OPERATOR): Chronic Stable Cont ambien Assessment & Plan (08/31/2020 6:29 AM DELINQUENT NOTICE MACHINE OPERATOR): Stable Cont ambien Assessment & Plan (05/11/2020 [...] auvelity Assessment & Plan (09/04/2023 6:21 AM DELINQUENT NOTICE MACHINE OPERATOR): Chronic Stable Cont abilify, lexapro, caplypta Assessment & Plan (04/10/2023 9:47 PM CDT): Chronic Stable Cont caplyta Assessment & Plan (01/18/2023 2:48 PM CDT): Finally improving Cont caplyta Failed: wellbutrin, lexapro, vraylar Refer to psych Assessment & Plan (12/20/2022 12:21 PM CDT): Worsening Uncontrolled Failed: wellbutrin, lexapro, vraylar Start caplypta Refer to psych Assessment & Plan (10/18/2022 6:19 AM DELINQUENT NOTICE MACHINE OPERATOR): Uncontrolled Start vraylar 3mg daily Cont lexapro Failed: wellbutrin Refer to psych Assessment & Plan (09/14/2022 6:11 AM DELINQUENT NOTICE MACHINE OPERATOR): Chronic Worsening Add wellbutrin Cont lexapro Assessment & Plan (12/09/2021 11:40 AM CDT): Stable Cont lexapro Assessment & Plan (08/11/2021 5:21 AM DELINQUENT NOTICE MACHINE OPERATOR): Stable Cont lexapro Assessment & Plan (02/04/2021 6:52 AM CDT): Worsened Increase to lexapro 20mg daily Assessment & Plan (08/31/2020 6:29 AM DELINQUENT NOTICE MACHINE OPERATOR): Stable Cont lexapro Assessment & Plan (07/01/2020 2:08 AM CDT): Stable Cont lexapro Assessment & Plan (05/11/2020 4:03 PM CDT): Stable Cont lexapro Assessment & Plan (06/06/2019 9:05 AM CDT): Stable, no changes. Continue current regimen with Lexapro GERD (gastroesophageal reflux disease) 6 Assessment & Plan (09/04/2023 6:21 AM DELINQUENT NOTICE MACHINE OPERATOR): Chronic Stable Cont omeprazole Assessment & Plan (04/10/2023 9:48 PM CDT): Chronic Stable Cont omeprazole Assessment & Plan (08/31/2020 6:28 AM DELINQUENT NOTICE MACHINE OPERATOR): Stable Cont omeprazole Assessment & Plan (05/11/2020 4:02 PM CDT): Stable Cont omeprazole Assessment & Plan (06/05/2019 10:53 AM CDT): Stable, no changes. Continue current regimen with PPI and Reglan Irritable bowel syndrome with diarrhea 6 Assessment & Plan (12/20/2022 11:48 AM CDT): Chronic Stable Cont bentyl Assessment & Plan (09/14/2022 6:11 AM DELINQUENT NOTICE MACHINE OPERATOR): Chronic Stable Cont bentyl Assessment & Plan (08/11/2021 5:22 AM DELINQUENT NOTICE MACHINE OPERATOR): Chronic Cont lomotil Assessment & Plan (02/04/2021 [...] 02/17/2016 Assessment & Plan (09/04/2023 6:21 AM DELINQUENT NOTICE MACHINE OPERATOR): Chronic Stable Cont relpax prn Assessment & Plan (04/10/2023 9:47 PM CDT): Chronic Stable Cont relpax prn Assessment & Plan (12/20/2022 12:22 PM CDT): Chronic Cont propranolol, relpax Assessment & Plan (09/14/2022 6:11 AM DELINQUENT NOTICE MACHINE OPERATOR): Stable Cont propranolol, relpax Assessment & Plan (12/09/2021 11:40 AM CDT): Stable Cont propranolol, relpax Assessment & Plan (08/11/2021 5:21 AM DELINQUENT NOTICE MACHINE OPERATOR): Stable Cont propranolol, relpax Assessment & Plan (08/31/2020 6:27 AM DELINQUENT NOTICE MACHINE OPERATOR): Stable Cont propranolol, uses relpax, fioricet PRN [...] TG<150 Assessment & Plan (08/11/2021 5:20 AM DELINQUENT NOTICE MACHINE OPERATOR): Stable Cont lipitor Goal: TC<200, LDL<100, TG<150 Assessment & Plan (05/05/2021 10:54 AM CDT): Stable Cont lipitor Assessment & Plan (12/19/2020 4:49 PM CDT): Chronic Cont vytorin Assessment & Plan (08/31/2020 6:29 AM DELINQUENT NOTICE MACHINE OPERATOR): Stable Cont lipitor Assessment & Plan (07/01/2020 2:08 AM CDT): Stable Cont lipitor Assessment & Plan (05/11/2020 4:03 PM CDT): Stable Cont lipitor Encounters Date Type Department Care Team Description 04/24/[address] [place] [address] Fransisca Loza MD 04/09/2025 3:00 PM CDT Office Visit [address] [place] [address] Fransisca Loza MD Adult attention deficit disorder (Primary Dx); Controlled type 2 diabetes mellitus without complication, without long-term current use of insulin; Mixed hyperlipidemia 04/04/2025 9:45 AM CDT Lab [facility] [place] [address] Controlled type 2 diabetes mellitus without complication, without long-term current use of insulin (HCC); Hypertension, essential; Hypertriglyceridemia 03/25/[address] [place] [address] Fransisca Loza MD 02/09/[address] [place] [id number] Elle Sepulveda MA from Last 3 Months Immunizations Immunization Administration [...] disease Mother Mom Diabetes Paternal Grandfather Grandpa Jignesh Hyperlipidemia Paternal Grandfather Grandpa Jignesh Hypertension Paternal Grandfather Grandpa Jignesh Cancer Paternal Grandmother Grandma Margi No Known Problems Sister Relation Name Status Comments Brother Alive Father Dad Alive Father's Sister Aunt Ana and Aunt Mishel Maternal Grandfather Maternal Grandmother Grandma Therese Mother Mom Alive Paternal Grandfather Grandpa Jignesh Alive Paternal Grandmother Grandma Margi Sister Alive [...] points, staff should administer the PHQ-9) 2 04/09/2025 PHQ-9 Answer Date Recorded PHQ-9 Total Score 7 04/09/2025 Comments No Sex and Gender Information Value Date Recorded Sex Assigned at Not on file Legal Sex Female 8:45 PM DELINQUENT NOTICE MACHINE OPERATOR Gender Identity Female 05/20/2020 8:57 AM CDT Sexual Orientation Straight 05/20/2020 8: 57 AM CDT Obstetrics History Last Filed Vital Signs Vital Sign Reading Time Taken Comments Blood Pressure 110/70 04/09/2025 3:06 PM CDT Pulse 89 04/09/2025 3:06 PM CDT Temperature 36.1 C (97 F) 04/09/2025 3:06 PM CDT Respiratory Rate 14 04/09/2025 3:06 PM CDT Oxygen Saturation 97% 04/09/2025 3:06 PM CDT Inhaled Oxygen Concentration - - Weight 95.5 kg (210 lb 9.6 oz) 04/09/2025 3:06 P M CDT Height 175.3 cm (5' 9) 04/09/2025 3:06 PM CDT Body Mass Index 31.1 04/09/2025 3:06 PM CDT Plan of Treatment Health Maintenance [...] series) 2011 Cervical Cancer Screening 01/05/2017 01/06/2016 Influenza Vaccine (#1) 2025 , 06/24/2023, 06/12/2023, Additional history exists Hemoglobin A1C 10/05/2025 04/04/2025, 12/03, 09/27/2024, Additional history exists Breast Cancer Screening-Mammogram 10/09/2025 025 Albumin Creatinine Ratio, Urine 12/27/2025 12/27/2024, 09/27/2024, 02/13/2024, Additional history exists Lipid Panel 04/04/2026 04/04/2025, 09/04, 02/13/2024, Additional history exists eGFR 04/04/2026 04/04/2025, 12/03, 09/27/2024, Additional history exists Depression Screening 04/09/2026 04/09/2025, 04/09/2025, 02/14/2024, Additional history exists Dilated Eye Exam 12/06/2026 12/06/2024, 03/14/2022 Covid-19 Vaccine Completed 05/24/2024, , 10/13/2022, Additional history exists Procedures Procedure Name Priority Date/Time Associated Diagnosis Comments EGFR Routine 04/04/2025 9:54 AM CDT Controlled type 2 diabetes mellitus without complication, without long-term current use of insulin (HCC) Hypertension, essential Hypertriglyceridemia HEMOGLOBIN A1C Routine 04/04/2025 9:54 AM CDT Controlled type 2 diabetes mellitus without complication, without long-term current use of insulin (HCC) Hypertension, essential Hypertriglyceridemia COMPREHENSIVE METABOLIC PANEL Routine 04/04/2025 9:54 AM CDT Controlled type 2 diabetes mellitus without complication, without long-term current use of insulin (HCC) Hypertension, essential Hypertriglyceridemia LIPID PANEL Routine 04/04/2025 9:54 AM CDT Controlled type 2 diabetes mellitus without complication, without long-term current use of insulin (HCC) Hypertension, essential Hypertriglyceridemia ALBUMIN CREATININE RATIO, URINE Routine 12/27/2024 11:21 AM CDT Type 2 diabetes mellitus with hyperlipidemia (HCC) Hypertension, essential Acquired hypothyroidism DIABETIC EYE EXAM Routine 12/06/2024 1:4 6 PM CDT SCREENING MAMMOGRAM Schedule Routine, Read Routine (OP Routine) 10/09/2024 THINPREP PAP Routine 01/06/2016 9:51 AM CDT from Last 3 Months or Most Recently Relevant to Health Maintenance Results * eGFR (04/04/2025 9:54 AM CDT) eGFR 75 >=60 mL/min/1. 73 m2 Comment: Interpretive Data [...] Inclusion of Race in Diagnosing Kidney Disease, JEFSN 2020). The CKD-EPI equation should not be used for patients with unstable renal function and has not been validated in children and those over 70. Current interpretive data was last reviewed 2021. Blood 04/04/2025 9:54 AM CDT 04/04/2025 10:54 AM CDT Fransisca Loza MD LAB BLOOD ORDERABLES Tonie l Result Performing Organization Address [facility] de Phone Number [address] [address] * Hemoglobin A1c (04/04/2025 9:54 AM CDT) Hgb A1C 5.6 4.0 - 5.6 % Estimated Average Glucose 114 mg/dL [facility] Comment: The ADA recommends reporting an estimated Average Glucose (eAG) with all Hemoglobin A1c results using the equation derived from a study of 507 normal and diabetic adults. Minority populations were underrepresented and children were not included. (Diabetes Care 31:8749-8908, 2008). The eAG is not equivalent to a fasting glucose. Blood 04/04/2025 9:54 AM CDT 04/04/2025 10:54 AM CDT Fransisca Loza MD LAB BLOOD ORDERABLES Tonie l Result Performing Organization Address [facility] de Phone Number [address] [address] * Lipid panel (04/04/2025 9:54 AM CDT) Cholesterol 105 30 - 199 mg/dL Comment: Interpretive Data [...] Data was last revised on 2018. Triglycerides 66 <=149 mg/dL [facility] Comment: Interpretive Data Ages [...] Data was last revised on 2018. HDL 52 >=40 mg/dL [facility] Comment: Interpretive Data Ages [...] was last revised on 2018. LDL, calculated 39 <=129 mg/dL [facility] Comment: Interpretive Data Ages [...] 2. NCEP Expert Panel. Circulation 2004;110:227 3. Avila M et al. SAMIA Cardiol. 2020 January 01;5(5):540-548. doi: 10.1001/jamacardio.2020.0013 Current Interpretive Data was last revised on 2024. Non-HDL Cholesterol 53 mg/dL [facility] Comment: Interpretive Data Ages < or = [...] last revised on 2018. Chol/HDL ratio 2 [facility] Blood 04/04/2025 9:54 AM CDT 04/04/2025 10:54 AM CDT us Fransisca Loza MD LAB BLOOD ORDERABLES Tonie l Result [facility] [address] [facility] Department [place] [address] * Comprehensive metabolic panel (04/04/2025 9:54 AM CDT) Sodium 137 135 - 145 mmol/L Potassium, pl 4.2 3.3 - 4.9 mmol/L [facility] Chloride 104 97 - 110 mmol/L [facility] CO2 24 22 - 32 mmol/L [facility] Anion gap 9 2 - 15 mmol/L [facility] BUN 6 6 - 25 mg/dL [facility] Creatinine 0.97 0.60 - 1.10 mg/dL [facility] Glucose 123 70 - 199 mg/dL [facility] Comment: Interpretive Data Fasting glucose >/= 126 mg/dl is diagnostic for diabetes. Fasting is defined as no caloric intake for at least 8 hours. Fasting glucose between 100 mg/dl to 125 mg/dl is diagnostic of prediabetes. In a patient with classic symptoms of hyperglycemia or hyperglycemic crisis, a random glucose >/= 200 mg/dl is diagnostic for diabetes. In the absence of unequivocal hyperglycemia, results should be confirmed by repeat testing. The classification and Diagnosis of Diabetes Diabetes Care 2021; 46: S19-S40. Current interpretive data was last revised 2022. Calcium 9.1 8.5 - 10.3 mg/dL [facility] Bilirubin, total 1.0 0.1 - 1.2 mg/dL [facility] Protein, pl 6.9 6.5 - 8.5 g/dL [facility] Albumin 4.2 3.5 - 5.0 g/dL [facility] Alk phos 94 40 - 130 Units/L [facility] ALT 37 7 - 45 Units/L [facility] AST 31 10 - 45 Units/L [facility] Blood 04/04/2025 9:54 AM CDT 04/04/2025 10:54 AM CDT Fransisca Loza MD LAB BLOOD ORDERABLES Tonie l Result Performing Organization Address [facility] de Phone Number [address] [place] [address] * (ABNORMAL) Albumin Creatinine Ratio, Urine (12/27/2024 11:21 AM CDT) Albumin Ur 679.0 mg/L Comment: Interpretive Data No reference range established. Current interpretive data was last revised 2019. Creatinine Ur 276.0 mg/dL [facility] Comment: Interpretive Data No reference range established. Current interpretive data was last revised 2019. Albumin Creatinine Ratio, Ur 246(H) 1 - 29 mg/g [facility] Urine 12/27/2024 11:2 1 AM CDT 12/27/2024 11:21 AM CDT Fransisca Loza MD LAB URINE ORDERABLES Tonie l Result Performing Organization Address [facility] Co de Phone Number [place] [address] [facility] [place] [address] * Diabetic Eye Exam (12/06/2024 1:46 PM CDT) us Historical Provider HEALTH MAINTENANCE Final Result * Screening Mammogram (10/09/2024) Anatomical Region Laterality Modality Breast N/A Mammography 10/09/2024 Historical Provider IMG MAMMO PROCEDURES Tonie l Result * ThinPrep Pap (01/06/2016 9:51 AM CDT) Thin Prep Pap Smear SEE BELOW () 01/12 2:47 PM CDT [facility] HISTORICAL RESULTS Comment: Traffic Survey Technician ThinPrep Cytology Final Report ThinPrep Pap Specimen Source Cervix/Endocervix Specimen Adequacy Satisfactory for interpretation, endocervical cells (transformation zone) present. Interpretation Negative for intraepithelial lesion or malignancy. 01/13/16 Manager Business Development Hospice: KEM Perez(ASCP) 01/13/16 Verified By: KEM Perez(ASCP) electronic signature [facility], Department of Pathology [address] [place] [address] For questions regarding this case, call ext. [phone] CPT Code(s) 28209 Clinical History LMP: 532446 : N : N IUD: N Hormone Therapy: N Postmenopausal: N Previous surgery date and type: N Hysterectomy: N Chemotherapy: N LIYA Exposure: N Radiation: N Previous Abnormal Pap? Details: N Diagnostic or Screening Pap Test: Screening Performed by [employer], [address] [place] [id number] [email or web address], Osvaldo Landon MD - Lab. Director 01/06/2016 9:51 AM CDT 01/06/2016 5:29 PM CDT Allyssa Sy [facility] LAB PATHOLOGY ORDERABLE S Final Result Performing Organization Address City/State/[facility] Co de Phone Number [facility] HISTORICAL RESULTS from Last 3 Months or Most Recently Relevant to Health Maintenance Insurance [employer] OOS [employer] O[employer] Care Teams Cloth Folder Machine Relationship Specialty Start Date End Date Fransisca Loza MD PCP - General Family Medicine 10/04/21
--- OUTSIDE RECORDS SUMMARY | 2025-04-27 12:29 | XMS_ITS | Clinical Summary ---
Author Organization [facility] Address [address] [facility] [place] [address] Care Team Providers Care Feeder Catcher Tobacco Name Role Phone Francisco Javier Dorado MD Primary Care Provider [phone] Source Comments [facility],non-owned Affiliates and Associated Physician Practices is amultiple site organization consisting of ambulatory clinics and hospital sitesin [place], [place], [place] and [place]. This disclosure is being madepursuant to the Care Everywhere program and may not contain all information available regarding this patient. Last updated 18.[facility] Allergies Active Allergy Reactions Criticality Noted Date [...] patient's age to complete this topic Insurance [facility] Care Teams Feeder Catcher Tobacco Relationship Specialty Start Date End Date Francisco Javier Dorado MD [address] [place] [address] PCP - General Family Medicine 01/29/14
--- OUTSIDE RECORDS SUMMARY | 2025-04-27 12:29 | XMS_ITS | Encounter Summary ---
Author Organization [facility] Facility Care Team Providers Care Data Governance Consultant Name Role Phone Fransisca Loza MD Primary Care Provider [phone] Fransisca Loza MD Primary Care Provider [phone] Fransisca Loza MD Primary Care Provider [phone] Encounter Details Date Type Department Care Team (Latest Contact Info) Description 01/11/2016 Orders Only [facility] ProviderChio MD [address] [place] [id number] Social History Tobacco Use Types Packs/Day Years Used Date Smoking Tobacco: Never Assessed Comments Unknown Sex and Gender Information Value Date Recorded Sex Assigned at Not on file Legal Sex 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 08/04/2020 08/04/2020 08/18/2020 3:0 7 AM CREW SUPERVISOR COVID: Suspected 08/05/2020 08/07/2020 08/08/2020 3:56 AM CREW SUPERVISOR COVID: Suspected 10/01/2020 10/01/2020 10/02/2020 3:45 AM CREW SUPERVISOR Respiratory Infection (SHIVA), contact + droplet Comment:Automatically added due to negative COVID-19 result. 10/02/2020 10/02/2020 10/16/2020 3:0 5 AM CREW SUPERVISOR COVID: Suspected 10/06/2020 10/06/2020 10/07/2020 5:07 AM CREW SUPERVISOR COVID: Suspected 11/03/2021 11/03/2021 11/04/2021 3:06 AM CREW SUPERVISOR documented as of this encounter Care Teams Data Governance Consultant Relationship Specialty Start Date End Date Fransisca Loza MD PCP - General 11/14/18 10/03/21 Fransisca Loza MD PCP - General 11/12/18 11/13/18 Fransisca Loza MD PCP - General Family Medicine 10/04/21 documented as of this encounter
--- OUTSIDE RECORDS SUMMARY | 2025-04-27 12:29 | XMS_ITS | Encounter Summary ---
Author Organization [facility] Healthcare Address [address] [place] [address] Care Team Providers Care Registered Nurse Practitioner Name Role Phone Fransisca Loza MD Primary Care Provider [phone] Encounter Details Date Type Department Care Team (Late st Contact Info) Description 10/09/2024 Orders Only [facility] Health Information Management [address] [place] [id number] Scanning, Provider Social History Tobacco Use Types [...] on file Legal Sex Female 8:45 PM ANALYTICAL RESEARCH PROGRAM MANAGER Gender Identity Female 05/20/2020 8:57 AM CDT [...] on filedocumented in this encounter Care Teams Registered Nurse Practitioner Relationship Specialty Start Date End Date Fransisca Loza MD PCP - General Family Medicine 10/04/21 documented as of this encounter
--- OUTSIDE RECORDS SUMMARY | 2025-04-27 12:29 | XMS_ITS | Encounter Summary ---
Author Organization [facility] Facility Care Team Providers Care Manager Speech Name Role Phone Fransisca Loza MD Primary Care Provider [phone] Fransisca Loza MD Primary Care Provider [phone] Fransisca Loza MD Primary Care Provider [phone] Encounter Details Date Type Department Care Team (Latest Contact Info) Description 01/06/2016 Orders Only [facility]INCONV Provider, MD Chio [address] [place] [address] Social History Tobacco Use Types Packs/Day Years Used Date Smoking Tobacco: Never Assessed Comments Unknown Sex and Gender Information Value Date Recorded Sex Assigned at Not on file Legal Sex Female 8:45 PM BARRER AND TACKER Gender Identity Female 05/20/2020 8:57 AM CDT [...] COVID: Suspected 08/02/2020 08/03/2020 08/04/2020 8:54 PM BARRER AND TACKER Respiratory Infection (SHIVA), contact + droplet Comment:Automatically added due to negative COVID-19 result. 08/04/2020 08/04/2020 08/18/2020 3:0 7 AM BARRER AND TACKER COVID: Suspected 08/05/2020 08/07/2020 08/08/2020 3:56 AM BARRER AND TACKER COVID: Suspected 10/01/2020 10/01/2020 10/02/2020 3:45 AM BARRER AND TACKER Respiratory Infection (SHIVA), contact + droplet Comment:Automatically added due to negative COVID-19 result. 10/02/2020 10/02/2020 10/16/2020 3:0 5 AM BARRER AND TACKER COVID: Suspected 10/06/2020 10/06/2020 10/07/2020 5:07 AM BARRER AND TACKER COVID: Suspected 11/03/2021 11/03/2021 11/04/2021 3:06 AM BARRER AND TACKER documented as of this encounter Care Teams Manager Speech Relationship Specialty Start Date End Date Fransisca Loza MD PCP - General 11/14/18 10/03/21 Fransisca Loza MD PCP - General 11/12/18 11/13/18 Fransisca Loza MD PCP - General Family Medicine 10/04/21 documented as of this encounter
== END 2025-04-27 12:21 | disposition home or self-care (01) ==
LOC: ANHFOHIMG 12:21
PROVIDERS: PCP Family Medicine; Visit Provider Obstetrics & Gynecology
DX: N63.0 Unspecified lump in unspecified breast (principal); R92.8 Other abnormal and inconclusive findings on diagnostic imaging of breast
CPT/HCPCS: 76642; 77061; 77065; G0279